=== PATIENT | male | born 1950 | race Caucasian/White ===

== ENCOUNTER 2017-06-05 07:47 | Inpatient (IN) | payer OTHER, MEDICARE ==
[2017-06-05] VITALS (9 sets, daily range): BP systolic 132–140; BP diastolic 70–81; PULSE 55–74; RESP 16–18; TEMP 97.9–98.6; O2SAT 94–96
[~2017-06-05] VITALS: Ht 180.3 cm; Wt 84.0 kg
[2017-06-05] MEDS: SODIUM CHLOR 0.9% 1000 ML INJ 1,000 ML IV SCH (08:15)
[2017-06-05] MEDS ORDERED: MORP1TAB24 PO (08:37)
[2017-06-05] MEDS ORDERED: BAYE325T (08:37)
[2017-06-05] MEDS ORDERED: NITR1SUB3 SL (08:37)
[2017-06-05] MEDS ORDERED: BUPR150T5 PO (08:37)
[2017-06-05] MEDS ORDERED: ISOS30TA3 PO (08:37)
[2017-06-05] MEDS ORDERED: ATOR1TAB18 PO (08:37)
[2017-06-05 08:46] LABS: AUTOMATED NEUTROPHIL # 5.2 TH/MM3 (1.8-7.7); BASOPHIL % 0.5 % (0.0-2.0); EOSINOPHIL # 0.4 TH/MM3 (0-0.4); EOSINOPHIL % 4.8 % (0.0-4.0); HEMATOCRIT 40.4 % (39.0-51.0); HEMO FLAGS DIFF FINAL; LYMPH % 25.8 % (9.0-44.0); LYMPHOCYTE # 2.3 TH/MM3 (1.0-4.8); MEAN CELL VOLUME 93.9 FL (80.0-100.0); MEAN CORPUSCULAR HEMOGLOBIN 32.4 PG (27.0-34.0); MEAN CORPUSCULAR HGB CONC 34.5 % (32.0-36.0); MONO % 9.6 % (0.0-8.0); NEUT % 59.3 % (16.0-70.0); PLATELET COUNT 192 TH/MM3 (150-450); RED CELL DISTRIBUTION WIDTH 13.6 % (11.6-17.2); WHITE BLOOD COUNT 8.8 TH/MM3 (4.0-11.0)
[2017-06-05 08:57] LABS: APTT (PATIENT) 28.9 SEC (24.3-30.1); INTERNATIONAL NORMALIZED RATIO 0.9 RATIO; PROTHROMBIN TIME - PATIENT 10.1 SEC (9.8-11.6)
[2017-06-05 08:59] LABS: BICARBONATE 26.9 MEQ/L (21.0-32.0); POTASSIUM 3.7 MEQ/L (3.5-5.1)
[2017-06-05] MEDS ORDERED: MIDAZOLAM HCL 2 MG/2 ML VIAL ONE (09:50)
[2017-06-05] MEDS ORDERED: VERAPAMIL HCL 5 MG/2 ML VIAL ONE (09:50)
[2017-06-05] MEDS ORDERED: NITROGLYCERIN INJ 5 ML ONE (09:51)
[2017-06-05] MEDS ORDERED: HEPARIN SODIUM - IV 10,000 UNITS/10 ML VIAL ONE (09:51)
[2017-06-05] MEDS ORDERED: HEPARIN-NS/PF INJ 500 ML ONE (09:51)
--- NOTE | 2017-06-05 10:56 | CATHPROC ---
[employer] HIS Report Study Information Study Number Admission Scheduled Start Study Start [id number] Jun 05 2017 7:47AM 06/05/2017 Jun 05 2017 9:45AM [facility] Cardiac Catheterization Admit Source Facility Department Other [facility] - Automatic Gluing Machine Operator Physician and Clinical Staff Initial Alex Bowens Sales And Marketing Analystmary Chandra RN, Laurent Sales And Marketing AnalystNayeli Reynoso BSRN Recorder Taya Graves RCIS TECH2 Scrub Sav Bautista RCIS(BS) Procedures Performed Procedure Location (Site) Vessel Name Coronary Angiograms LCA Left Coronary Coronary Angiograms RCA Right Coronary Equipment Time Home Comfort Advisor Description Size Mfg Part Number Used/Scraped TRANSDUCER, TRUWAVE [id number] 10:13 [employer] SANTIAGO * Used W/STOCKCOCK *[id number] [id number] *[id number] [id number] *[id number] 10:13 [employer] PACK, CCL CUSTOM * Used *[id number] 10:13 [employer] SUPPORT, ARTERIAL ADULT [id number] Used BAND, RADIAL COMPRESSION TR [id number] 10:37 [employer] 29CM Used LARGE 29 *[id number] 10:13 [employer] WIRE, EXCHANGE 260CM 3MMJ 260CM Used *[id number] 10:13 NAMIC MANIFOLD, 4 PORT * Used *[id number] 10:13 [employer] OMNIPAQUE, 350 MG, 150ML 150ML [id number] Used [id number] 10:13 [employer] BLANKET,WARM AIR CCL * Used *[id number] SHEATH, FR6 TRANSRADIAL RM*[id number] 10:13 [employer] FR 6 Used SLENDER 10CM *[id number] History: Current Medications Medication Dosage/Unit Route Frequency Last Date/Time Taken Statins (any) ASA Imdur NTG SL History: Allergies Allergy Reaction No Known Allergies History: Risk Factors Family History of Hypertension Dyslipidemia Previous NC Previous Heart Failure Premature CAD Yes Yes No Yes No Prior Valve Prior PCI Prior CABG Surgery No No No Cerebrovascular Peripheral Artery Chronic Lung On Dialysis Diabetes Disease Disease Disease No No No No No History: Symptoms/Diagnosis Selection Items Chest pain History: Stress Tests Stress or Imaging Studies Performed No History: Other Current Smoker Method Packs a Day Years Used Pack Years Yes Cigarettes 2 45 90 Labs Hgb (g/dl) Hct (%) WBC (l/cumm) Platelets (thousands) 11.60-17.00 35.00-51.00 4.00-11.00 150.00-450.00 14.0 40.4 8.8 192 Glucose (mg/dl) BUN (mg/dl) Creatinine (mg/dl) BUN:Creatinine (1:x) 74.00-106.00 7.00-18.00 0.50-1.30 10.00-20.00 91 15 0.5 30 Na (meq/l) K (meq/l) Cl (meq/l) CO2 (mmol/L) Ca (mg/dl) 136.00-145.00 3.50-5.10 98.00-107.00 21.00-32.00 8.50-10.10 139 3.7 105 26.9 8.7 PT (sec) PTT (sec) INR (PTT:PT) 9.80-11.60 24.30-30.10 0.90-1.10 10.1 28.9 0.9 CPK-MB (ng/ML) 0.50-3.60 Not Drawn Medication Medication Total Dose (Bolus/Oral) Medication Total Dosage/Unit 1% XYLOCAINE 20 mL FENTANYL 50 mcg RADIAL COCKTAIL 5 mL (Bolus) VERSED 1 mg Medications (Bolus/Oral) Medication Time Given Dosage/Unit Administered By Reason FENTANYL 06/05/2017 10:18:14 AM 50 mcg Laurent Chandra RN 50 mcg FENTANYL given in lab by Laurent Chandra RN in Left Antecubital via Peripheral IV. Ordered by Alex Avendano. 1% XYLOCAINE 06/05/2017 10:18:14 AM 20 mL Alex Smyth 20 mL 1% XYLOCAINE given in lab by Alex Smyth in Right Radial via Subcutaneous. VERSED 06/05/2017 10:19:21 AM 1 mg Laurent Chandra RN 1 mg VERSED given in lab by Laurent Chandra RN in Left Antecubital via Peripheral IV. Ordered by Alex Lea. Ntg 200mcg Verapamil 2.5mg Heparin RADIAL COCKTAIL 06/05/2017 10:19:58 AM 5 mL (Bolus) Alex Smyth 3000U 5 mL (Bolus) RADIAL COCKTAIL given in lab by Alex Smyth in Right Radial via Radial. Using [Maisha ution Name]. Ordered by Alex Smyth. Reason: Ntg 200mcg Verapamil 2.5mg Heparin 3500U. Medication (Drip) Medication Time Given Dosage/Unit Concentration/Unit Diluent (ml) Solution IV Solutions 06/05/2017 9:54:12 AM 0 mL (IV) 500 NaCl .9 Patient arrived on IV Solutions in Left Antecubital via Peripheral IV. Pump/Drip Flow = 20 ml/hr usin g NaCl .9. Initial Case Assessment Cardiovascular HR Rhythm NIBP Chest Pain 61 sr 132/72 0 Circulatory - Right Pulses Dorsalis Pedis Femoral Radial 2 2 2 Scale (0,1,2,3,4,d) Scale (0,1,2,3,4,d) Neurological State Oriented to time-place- Alert Moves all extremities person Respiration - General Respiration Rate SpO2 (%) (B/min) 20 96 Final Case Assessment Cardiovascular HR Rhythm NIBP Chest Pain 61 sr 123/71 0 Circulatory - Right Pulses Dorsalis Pedis Femoral Radial 2 2 2 Scale (0,1,2,3,4,d) Circulatory - Left Pulses Dorsalis Pedis Femoral Radial 2 2 Scale (0,1,2,3,4,d) Neurological State Oriented to time-place- Alert Moves all extremities person Respiration - General Respiration Rate SpO2 (%) (B/min) 13 96 Chronological Log Time Study Chronological Log 9:49:48 Patient arrived via Bed. 9:49:49 Patient Name, D.O.B, / Armband Verified By R.N. 9:49:50 Consent signed by the physician and the patient and verified by the Automatic Gluing Machine Operator staff. 9:49:51 Pre-op and post- op instructions given; patient acknowledges understanding of instructions. 9:49:53 Verbal Stimulation=2 Physical Stimulation=2 Airway=2 Respiration=2 TOTAL=8. (0=absent, 1=whitlock ited, 2=present) Vitals capture started with the following parameters, Patient=Adult, Interval=5 min, Initial Pr eajfjt=818 mmHg, 9:51:10 Deflation Rate=5 mmHg, Cuff placed on Right Arm 9:51:45 OMNT=704/72 mmhg 9:53:25 Allens test performed on the right radial and ulnar artery. 9:53:27 Patient has been NPO for More than 6Hrs. 9:53:28 Skin Breakdown-none 9:53:29 Lin Prominences Protected 9:53:32 A # 20 IV was noted in the Antecubital (left). Grade = patent 9:54:12 Patient arrived on IV Solutions in Left Antecubital via Peripheral IV. Pump/Drip Flow = 20 m l/hr using NaCl .9. 9:54:55 History and physical on the chart or being dictated. Assessment: Initial Case, HR=61 BPM, Rhythm=sr, NNWU=149/72 mmhg, Chest Pain=0 Right Pulses: Eric Ped=2, Femoral=2, Radial=2 9:55:03 Neurological: State=Alert, Ox3, ALONZO Respiration: Resp=20 B/min, SpO2=96 % 9:56:48 HR=59 bpm, SRDL=077/70 mmhg, SpO2=97.0 %, Resp=10 B/min, Pain=0, Pete=2 10:01:40 Reference ECG taken 10:01:45 HR=68 bpm, CLXN=220/71 mmhg, SpO2=96 %, Resp=10 B/min 10:02:44 Bilateral groins and right wrist prepped with 2% chlorhexidine, and draped after a 3 min. w aiting time. 10:06:46 HR=60 bpm, ABMY=978/74 mmhg, SpO2=98.0 %, Resp=15 B/min 10:10:57 MD arrived. 10:11:01 Pressure channel 1 zeroed. 10:11:47 HR=59 bpm, FOIZ=830/73 mmhg, SpO2=97.0 %, Resp=12 B/min 10:16:46 HR=56 bpm, GPWP=710/72 mmhg, SpO2=98.0 %, Resp=7 B/min Time Out. Correct patient, correct procedure, correct physician, power injector not loaded with contrast with surgical 10:17:33 team present. Time Out Concurred by MD and individual staff in procedure 10:18:08 Case Start 10:18:14 50 mcg FENTANYL given in lab by Laurent Chandra RN in Left Antecubital via Peripheral IV. Orde red by Alex Smyth. 10:18:14 20 mL 1% XYLOCAINE given in lab by Alex Smyth in Right Radial via Subcutaneous. 10:19:21 1 mg VERSED given in lab by Laurent Chandra RN in Left Antecubital via Peripheral IV. Ordered by Alex Smyth. 10:19:41 Access site was Radial Artery. A SHEATH, FR6 TRANSRADIAL SLENDER 10CM FR 6 was advanced into the Fem Art (right) using the Per cutaneous 10:19:50 technique. 5 mL (Bolus) RADIAL COCKTAIL given in lab by Alex Smyth in Right Radial via Radial. Evelyne lee [Solution Name]. 10:19:58 Ordered by Alex Smyth. Reason: Ntg 200mcg Verapamil 2.5mg Heparin 3500U. A JR 4.0 INFINITI CATHETER FR 5 was advanced over a wire. OMNIPAQUE, 350 MG, 150ML 150ML was us ed for 10:20:33 injections. 10:21:49 HR=59 bpm, QTZL=012/65 mmhg, SpO2=96.0 %, Resp=17 B/min, Pain=0, Pete=2 Recorded Pressure: LV, HR=65, Condition=Condition 1 10:23:03 (Left Ventricle) LV 110/1/8 Recorded Pressure: LV, Ao, HR=68, Condition=Condition 1 10:23:17 (Left Ventricle) LV 104/1/8, (Aorta) Ao 108/59/79 10:24:46 The RCA was injected and visualized at various angles. OMNIPAQUE, 350 MG, 150ML 150ML used . Recorded Pressure: Ao, HR=61, Condition=Condition 1 10:25:15 (Aorta) Ao 112/64/83 After removing the current catheter a JL 3.5 INFINITI CATHETER FR 5 was advanced over a WIRE, E XCHANGE 260CM 10:26:33 3MMJ 260CM. 10:26:46 HR=64 bpm, MKVZ=463/67 mmhg, SpO2=94 %, Resp=14 B/min 10:29:27 The LCA was injected and visualized at various angles. OMNIPAQUE, 350 MG, 150ML 150ML use d. 10:31:45 HR=63 bpm, UHBB=650/69 mmhg, SpO2=93.0 %, Resp=13 B/min 10:33:55 Catheter was removed over wire. 10:36:47 HR=61 bpm, HZOD=590/71 mmhg, SpO2=95.0 %, Resp=13 B/min Radial Compression Device Used. 9 mLs of air placed in BAND, RADIAL COMPRESSION TR LARGE 29 29 CM. Affected 10:36:59 hand 96 % O2 saturation. 10:37:22 Case End Assessment: Final Case, HR=61 BPM, Rhythm=sr, SPIL=512/71 mmhg, Chest Pain=0 Right Pulses: Eric Ped=2, Femoral=2, Radial=2 10:40:47 Left Pulses: Eric Ped=2, Femoral=2 Neurological: State=Alert, Ox3, ALONZO Respiration: Resp=13 B/min, SpO2=96 % 10:41:23 Vitals capture stopped. 10:43:37 No case complications noted. 10:43:40 Cine recording checked. 10:43:42 Bedside Report will be given. 10:43:47 Patient moved to bed 10:43:59 Patient transported to DOCU End Study - Contrast Media Used In Study Contrast Total Opened (mL) Total Used (mL) Total Wasted (mL) Omnipaque 45 45 0 End Study - Maximum Contrast Load Max Contrast Load (mL) 859.1 End Study - Radiation Exposure Fluoro Time (minutes) 3.7 End Study - Sheaths Sheaths Pulled By Sheath Hold Time (min) Alex Smyth End Study - Patient Disposition Complications Transferred To No Telemetry Bed
[2017-06-05] MEDS ORDERED: oxyCODONE/ACETAMINOPHEN 5 MG/325 MG TAB PO PRN ×2 (11:00)
[2017-06-05] MEDS ORDERED: ONDANSETRON HCL 4 MG/2 ML VIAL IVP PRN (11:00)
[2017-06-05] MEDS ORDERED: SODIUM CHLORIDE 0.9% FLUSH 10 ML FLUSH IV FLUSH PRN (11:30)
[2017-06-05] MEDS ORDERED: INSULIN REGULAR (IV INFUSION) 100 UNITS in SODIUM CHLORIDE 0.9% INJ 100 ML IV SCH (11:30)
[2017-06-05] MEDS ORDERED: ceFAZolin 2 GM PREMIX 50 ML IV SCH (11:30)
[2017-06-05] MEDS ORDERED: CHLORHEXIDINE GLUCONATE 4% SOLN 120 ML BTL TOPICAL SCH (11:30)
[2017-06-05] MEDS ORDERED: PAPAVERINE INJ 60 MG, NITROGLYCERIN INJ 100 MCG, DILTIAZEM INJ 100 MG in SODIUM CHLORID... IRRIGATION SCH (11:30)
[2017-06-05] MEDS ORDERED: CEFAZOLIN INJ 500 MG in SODIUM CHLORIDE 0.9% IRR BTL 500 ML IRRIGATION SCH (11:30)
[2017-06-05] MEDS ORDERED: METOPROLOL TARTRATE 25 MG TAB PO SCH (11:30)
[2017-06-05] MEDS ORDERED: PILL SPLITTER OTHER PRN (11:45)
[2017-06-05] MEDS ORDERED: IOHEXOL 350 MG/ML 50 ML BTL (for Cath Lab) OTHER ONE (11:47)
--- NOTE | 2017-06-05 11:55 | EKG ---
Date Performed: 06/05/2017 Time Performed: 08:41:20 PTAGE: 66 years EKG: Sinus bradycardia Left axis deviation rSr'(V1) - probable normal variant Poor R wave progre ssion - probable normal variant Borderline ECG NO PREVIOUS TRACING DOCTOR: Avery Jeronimo Interpretating Date/Time 06/05/2017 11:54:02
--- NOTE | 2017-06-05 12:32 | RADRPT ---
EXAM DATE/TIME: 06/05/2017 11:36 [facility] COMPARISON: No previous studies available for comparison. INDICATIONS : Evaluate for pneumonia, pneumothorax, and communicable disease. Preop for CABG. MEDICAL HISTORY : None. SURGICAL HISTORY : None. ENCOUNTER: Initial ACUITY: 1 day PAIN SCORE: 0/10 LOCATION: Bilateral chest FINDINGS: The heart is at the upper limits of normal in size. There are patchy areas of infiltrate seen in the lung bases. A basilar pneumonia is not excluded. There is no pleural effusion. The osseous structures are intact. CONCLUSION: 1. There are patchy areas of infiltrate in the lung bases. An underlying pneumonia is not excluded. Valentin Lucio MD on June 05, 2017 at 12:30 Board Certified Radiologist. This report was verified electronically.
--- NOTE | 2017-06-05 13:26 | RADRPT ---
EXAM DATE/TIME: 06/05/2017 11:56 [facility] COMPARISON: No previous studies available for comparison. INDICATIONS : Preop cardiac surgery. MEDICAL HISTORY : Myocardial infarction. Coronary artery disease. Chest pain. SURGICAL HISTORY : Cardiac cath. ENCOUNTER: Initial ACUITY: 1 day PAIN SCORE: 0/10 LOCATION: Bilateral neck PEAK SYSTOLIC VELOCITIES (cm/sec): ICA/CCA RATIO: Right: 1.0 Left: 1.3 ICA: Right: 78 Left: 100 CCA: Right: 136 Left: 76 ECA: Right: 95 Left: 88 VERTEBRAL: Right: 39 antegrade Left: 50 antegrade Elevated flow velocities and ICA/CCA ratios have been found to correlate with increased degrees of vessel stenosis, calculated as percentage of diameter relative to a normal segment of distal ICA/CCA FINDINGS: RIGHT CAROTID: No significant stenosis is visualized. The waveforms are within normal limits. LEFT CAROTID: No significant stenosis is visualized. The waveforms are within normal limits. VERTEBRAL ARTERIES: Antegrade flow is seen in both vertebral arteries. MISCELLANEOUS: None. CONCLUSION: 1. No hemodynamically significant flow-limiting stenosis. 2. Antegrade vertebral artery flow bilaterally. Frantz Rod MD on June 05, 2017 at 13:23 Board Certified Radiologist. This report was verified electronically.
--- NOTE | 2017-06-05 13:28 | RADRPT ---
EXAM DATE/TIME: 06/05/2017 12:13 [facility] COMPARISON: No previous studies available for comparison. INDICATIONS : Preop cardiac surgery. MEDICAL HISTORY : Myocardial infarction. Coronary artery disease. Chest pain. SURGICAL HISTORY : Cardiac cath. ENCOUNTER: Initial ACUITY: 1 day PAIN SCORE: 0/10 LOCATION: Bilateral leg. TECHNIQUE: Venous ultrasound of the left and right leg was performed from the inguinal ligament to the proximal calf. Real-time, color Doppler and spectral tracing, compression and augmentation techniques were us ed. FINDINGS: RIGHT LEG: There is normal compressibility of the deep venous system from the inguinal region to the proximal ca lf. No echogenic clot is seen in the lumen of the common femoral, femoral, popliteal, and posterior tibial veins. There is a normal response of the venous system to proximal and distal augmentation an d respiration. LEFT LEG: There is normal compressibility of the deep venous system from the inguinal region to the proximal ca lf. No echogenic clot is seen in the lumen of the common femoral, femoral, popliteal, and posterior tibial veins. There is a normal response of the venous system to proximal and distal augmentation an d respiration. CONCLUSION: 1. No sonographic evidence for lower extremity DVT. Frantz Rod MD on June 05, 2017 at 13:25 Board Certified Radiologist. This report was verified electronically.
--- NOTE | 2017-06-05 13:29 | RADRPT ---
EXAM DATE/TIME: 06/05/2017 12:23 [facility] COMPARISON: No previous studies available for comparison. INDICATIONS : Preop cardiac surgery. MEDICAL HISTORY : Myocardial infarction. Coronary artery disease. Chest pain. SURGICAL HISTORY : Cardiac cath. ENCOUNTER: Initial ACUITY: 1 day PAIN SCORE: 0/10 LOCATION: Bilateral leg. GREATER SAPHENOUS VEIN THIGH: PROXIMAL: Right 5 mm Left 5 mm MID: Right 3 mm Left 3 mm DISTAL: Right 2 mm Left 3 mm CALF: PROXIMAL: Right 2 mm Left 1 mm MID: Right 2 mm Left Non-visualized DISTAL: Right 2 mm Left Non-visualized FINDINGS: The venous system of the lower extremities are patent by color Doppler imaging. Measurements of the leg veins (in mm) are listed above. CONCLUSION: 1. Venous mapping examination, as above. Frantz Rod MD on June 05, 2017 at 13:26 Board Certified Radiologist. This report was verified electronically.
--- NOTE | 2017-06-05 15:48 | PD.CAR.PN ---
CVT Progress Note Subjective/Hospital Course: pt seen and evaluated , full consulted dictated. Pt with multi vessel disease for CABG x 5 in am STS data discussed with pt RISK SCORES About the STS Risk Calculator Procedure: CAB Only Risk of Mortality: 0.803% Morbidity or Mortality: 8.284% Long Length of Stay: 3.314% Short Length of Stay: 57.112% Permanent Stroke: 0.545% Prolonged Ventilation: 6.377% DSW Infection: 0.418% Renal Failure: 0.581% Reoperation: 4.111% Objective: Vital Signs Date Time Temp Pulse Resp B/P Pulse Ox O2 Delivery O2 Flow Rate FiO2 06/05/17 10:52 97 Room Air 06/05/17 08:38 98.2 74 18 140/75 96 Labs: Laboratory Tests Test 06/05/17 06/05/17 06/05/17 08:28 11:45 11:50 White Blood Count 8.8 TH/MM3 (4.0-11.0) Red Blood Count 4.30 MIL/MM3 (4.50-5.90) Hemoglobin 14.0 GM/DL (13.0-17.0) Hematocrit 40.4 % (39.0-51.0) Mean Corpuscular Volume 93.9 FL (80.0-100.0) Mean Corpuscular Hemoglobin 32.4 PG (27.0-34.0) Mean Corpuscular Hemoglobin 34.5 % Concent (32.0-36.0) Red Cell Distribution Width 13.6 % (11.6-17.2) Platelet Count 192 TH/MM3 (150-450) Mean Platelet Volume 8.1 FL (7.0-11.0) Neutrophils (%) (Auto) 59.3 % (16.0-70.0) Lymphocytes (%) (Auto) 25.8 % (9.0-44.0) Monocytes (%) (Auto) 9.6 % (0.0-8.0) Eosinophils (%) (Auto) 4.8 % (0.0-4.0) Basophils (%) (Auto) 0.5 % (0.0-2.0) Neutrophils # (Auto) 5.2 TH/MM3 (1.8-7.7) Lymphocytes # (Auto) 2.3 TH/MM3 (1.0-4.8) Monocytes # (Auto) 0.8 TH/MM3 (0-0.9) Eosinophils # (Auto) 0.4 TH/MM3 (0-0.4) Basophils # (Auto) 0.0 TH/MM3 (0-0.2) CBC Comment DIFF FINAL Differential Comment Prothrombin Time 10.1 SEC (9.8-11.6) Prothromb Time International 0.9 RATIO Ratio Activated Partial 28.9 SEC Thromboplast Time (24.3-30.1) Sodium Level 139 MEQ/L (136-145) Potassium Level 3.7 MEQ/L (3.5-5.1) Chloride Level 105 MEQ/L (98-107) Carbon Dioxide Level 26.9 MEQ/L (21.0-32.0) Anion Gap 7 MEQ/L (5-15) Blood Urea Nitrogen 15 MG/DL (7-18) Creatinine 0.54 MG/DL (0.60-1.30) Estimat Glomerular Filtration 152 ML/MIN Rate (>89) Random Glucose 91 MG/DL (74-106) Calcium Level 8.7 MG/DL (8.5-10.1) Blood Type O POSITIVE O POSITIVE Antibody Screen NEGATIVE Crossmatch Leukocyte-Reduced Red Blood Cells Blood Bank Comment Result Diagram: 06/05/1728 06/05/1728 Sunshine Altamirano Jun 05, 2017 15:48
[2017-06-05] MEDS ORDERED: NITROGLYCERIN 0.4 MG SL 25 TABS/BTL SL PRN (17:15)
[2017-06-05 17:31] LABS: BLOOD, URINE NEG (NEG); COMMENT (UR) CULT NOT INDICATED; CULTURE IF INDICATED CULT NOT INDICATED; GLUCOSE,URINE NEG (NEG); KETONE, URINE NEG (NEG); NITRITE,URINE NEG (NEG); URINE COLOR YELLOW (YELLW/STRAW)
[2017-06-05] MEDS: buPROPion HCL 150 MG SUSTAINED RELEASE TAB PO SCH (21:50)
[2017-06-05] MEDS: ATORVASTATIN 80 MG TAB PO SCH (21:50)
[2017-06-05] MEDS: SODIUM CHLORIDE 0.9% FLUSH 10 ML FLUSH IV FLUSH SCH (21:51)
--- NOTE | 2017-06-05 22:12 | MH ---
cc: ALEX CORREA DO DATE OF ADMISSION 06/05/2017 REASON FOR ADMISSION Unstable angina. HISTORY OF PRESENT ILLNESS Bryson Quintana is a pleasant 66-year-old male who originally presented to the outpatient office to see my partner Dr. Holt due to chest pain. His chest pain is in the center of his chest, lasting minutes, especially with exertion and relieved by rest. He was recommended cardiac catheterization. Since being seen in the office less than a week ago, he has gone through 10-14 nitroglycerins. He underwent cardiac catheterization was found to have multivessel coronary artery disease. Because of the significance of his chest pain as well as multivessel disease it was felt that he should be admitted to the hospital for consideration of coronary artery bypass grafting. Currently he is post cardiac catheterization and is hemodynamically stable without chest pain. PAST MEDICAL HISTORY 1. Coronary artery disease. 2. Chronic pain syndrome. 3. Hyperlipidemia. 4. Neuropathy. 5. Tobacco abuse. PAST SURGICAL HISTORY 1. Cardiac catheterization (June 05, 2017) with left main 10%. Mid-LAD 80%. First diagonal with diffuse 70% disease. Left circumflex with a complex 99% long, tortuous lesion which crosses the bifurcation of the first major obtuse marginal. RCA 90% mid disease. 2. Lumbosacral spine surgery. ALLERGIES NO KNOWN DRUG ALLERGIES. MEDICATIONS 1. Aspirin 325 mg daily. 2. Lipitor 80 mg daily. 3. Bupropion 150 mg every 12 hours. 4. Imdur 30 mg daily. 5. Nitro sublingual as needed. 6. Morphine ER 15 mg every 4 hours as needed for pain. FAMILY HISTORY Denies premature coronary artery disease or sudden cardiac within the family. SOCIAL HISTORY The patient drinks alcohol rarely. He smokes two packs a day in the past and is down to half a pack a day recently. REVIEW OF SYSTEMS 14-systems were reviewed including osteopathic. Pertinent positives and negatives as above otherwise negative. PHYSICAL EXAMINATION VITAL SIGNS: Temperature 98.2, heart rate 74, blood pressure 140/75, respirations 18, pulse ox 96% on room air. GENERAL: In general the patient appears well in no acute distress, alert, awake and oriented x3. HEENT: Extraocular muscles intact. Mucous membranes moist. NECK: Supple. No JVD at 45 degrees. No carotid bruits heard bilaterally. Carotid upstroke is brisk in nature. CARDIOVASCULAR: Heart is regular rate and rhythm. Positive first and second heart sounds with no noted murmurs, gallops or rubs. LUNGS: Have decreased breath sounds at bilateral bases but no overt wheezes, rales or rhonchi. ABDOMEN: Soft, nontender, nondistended. No organomegaly noted. EXTREMITIES: Show no clubbing, cyanosis or edema. Femoral and distal pulses intact bilaterally. NEUROLOGIC: No focal deficits. SKIN: Warm, dry and intact. OSTEOPATHIC: No kyphoscoliosis, lordosis or paraspinal tender points. LABORATORY FINDINGS Hemoglobin 14.0, hematocrit 40.4, platelets 192. INR 0.9. Potassium 3.7, BUN 15, creatinine 0.54. Electrocardiogram (June 05, 2017 at 0841) sinus bradycardia, left axis deviation, poor R-wave progression most likely normal variant. ECHOCARDIOGRAM (May 27, 2017 from the office) ejection fraction 40-45%, mild concentric LVH. Trace to mild mitral regurgitation. Trace tricuspid regurgitation. IMPRESSION 1. Unstable angina on multiple antianginals. 2. Multivessel coronary artery disease as above. 3. Ejection fraction of 40-45% by echocardiogram as above. 4. Tobacco abuse. RECOMMENDATIONS 1. Because Bryson is having such significant chest pain requiring multiple nitroglycerins throughout a day, I feel that he should be admitted in consideration of coronary artery bypass grafting. 2. Case was discussed with Dr. Carey and he agrees and will plan for coronary artery bypass grafting tomorrow depending on testing. 3. For now he is not having chest pain and he will be supplied with nitro sublingual as needed. If overnight anything changes he may need to be placed on a heparin or a nitroglycerin drip. 4. I spoke to him for greater than 3 minutes about tobacco cessation which he states that he will attempt to quit now that he is going to be in the hospital a few days after his bypass grafting. Thank you for allowing me to see Bryson Quintana. If there are any questions please do not hesitate to call. Alex Correa DO VGP/KK /9:25 PM /9:49 PM
[2017-06-06] VITALS (18 sets, daily range): BP systolic 94–156; BP diastolic 27–84; PULSE 52–75; RESP 9–24; TEMP 96.6–100.8; O2SAT 91–98
[2017-06-06] MEDS ORDERED: HEPARIN SODIUM - SQ 10,000 UNITS/ML VIAL SQ ONE (05:00)
[2017-06-06] MEDS ORDERED: PROPOFOL 1000 MG/100 ML INJ 100 ML IV ONE (05:00)
[2017-06-06] MEDS ORDERED: NITROGLYCERIN-DEXTROSE INJ 250 ML IV ONE (05:00)
[2017-06-06] MEDS ORDERED: MAGNESIUM SULFATE 1000 MG/2 ML VIAL (PED) IV ONE (05:00)
[2017-06-06] MEDS ORDERED: PROTAMINE SULFATE 250 MG/25 ML VIAL IV ONE (05:00)
[2017-06-06] MEDS ORDERED: GLYCOPYRROLATE 0.2 MG/ML VIAL IV ONE (05:00)
--- NOTE | 2017-06-06 05:29 | MA ---
cc: ALEX CORREA DO DATE June 05, 2017 PROCEDURE Left heart catheterization, coronary angiogram, moderate sedation 20 minutes. PREPROCEDURE DIAGNOSIS Unstable angina on multiple antianginals. POSTPROCEDURE DIAGNOSIS Multivessel coronary artery disease. Unstable anginal. Consideration of coronary artery bypass grafting. MEDICATIONS 1. Fentanyl 50 mcg. 2. Versed 1 mg. 3. Verapamil 2.5 mg. 4. Heparin 3500 units. 5. Nitro 200 mcg. CONTRAST 45 cc. FLUOROSCOPY 3.7 minutes. MODERATE SEDATION 20 minutes. ESTIMATED BLOOD LOSS 10 cc. PROCEDURAL SUMMARY Bryson Quintana is a pleasant 66-year-old male who originally presented in the outpatient office with typical symptoms for unstable angina. Because of this it was felt that foregoing a stress test and undergoing a cardiac catheterization was his best option as, if his stress test was negative, he would still be recommended cardiac catheterization due to his significant symptoms. Risks, benefits and alternatives were explained to him and he consented as such. He was brought to the lab and prepped in the usual sterile fashion. Right radial artery was accessed using a modified Seldinger technique and placement of a 5/6 Italian Slender Sheath. This was easily aspirated and flushed. A JR-4 was advanced over a J-wire to the ascending aorta and across the aortic valve into the left ventricle for measurement of pressures. This was pulled back showing no significant gradient of aortic stenosis. JR-4 was used for selective angiography of the right coronary system. This was exchanged out for a JL-3.5 which was used for angiogram of the left coronary system. JL-3.5 was removed over a J-wire. A radial band was placed over the arteriotomy site for hemostasis. The patient left the garden labourer cardiovascularly stable. FINDINGS The left main is a normal-size vessel with mild luminal irregularities. It bifurcates into an LAD and circumflex. The LAD is a normal-sized vessel with mild luminal irregularities through the proximal portion. After the first major diagonal in the midportion of the LAD there is an 80% lesion with diffuse 40-50% distally. The first diagonal appears to have 70% disease in the proximal portion. At the lesion in the LAD there is a septal ship design teacher that has a 90% stenosis in the ostial portion. The LAD and septal perforators seemed to help provide collaterals to the distal circumflex. The left circumflex is a moderate-sized vessel in the proximal portion and before the takeoff of the first diagonal there is a 99% lesion which is overall complex because it is long and tortuous and involves the takeoff of the first two obtuse marginals. Overall the circumflex provides four to five major obtuse marginals. The RCA is a moderate-sized vessel with a 90% lesion in the proximal portion. The PDA has a 50% ostial lesion. LVEDP 8. IMPRESSIONS 1. Unstable angina on multiple antianginals 2. Multivessel coronary artery disease as above for consideration of coronary artery bypass grafting. RECOMMENDATIONS 1. Bryson Quintana presented with unstable angina and appears to have multivessel disease. Because of this I have recommended coronary artery bypass grafting. 2. Bryson has been on multiple antianginals and continues to have pain daily requiring multiple nitroglycerin throughout the day. Because of this I feel that he should stay in the hospital and have urgent coronary artery bypass grafting. 3. The case was discussed with Dr. Carey who we will consider coronary artery bypass grafting over the next few days. 4. Further recommendations will be made based on cardiothoracic surgery consultation. Thank you for allowing me to see Bryson Quintana. If there are any questions, please do not hesitate to call. Alex Correa DO VGP/SSB /9:14 PM /5:15 AM
[2017-06-06 06:24] LABS: AUTOMATED NEUTROPHIL # 4.9 TH/MM3 (1.8-7.7); BASOPHIL % 0.5 % (0.0-2.0); EOSINOPHIL # 0.5 TH/MM3 (0-0.4); EOSINOPHIL % 5.1 % (0.0-4.0); HEMATOCRIT 42.5 % (39.0-51.0); HEMO FLAGS DIFF FINAL; LYMPH % 32.4 % (9.0-44.0); MEAN CELL VOLUME 94.7 FL (80.0-100.0); MEAN CORPUSCULAR HGB CONC 33.8 % (32.0-36.0); MONO % 8.8 % (0.0-8.0); NEUT % 53.2 % (16.0-70.0); PLATELET COUNT 214 TH/MM3 (150-450); RED BLOOD COUNT 4.49 MIL/MM3 (4.50-5.90); RED CELL DISTRIBUTION WIDTH 13.6 % (11.6-17.2); WHITE BLOOD COUNT 9.1 TH/MM3 (4.0-11.0)
[2017-06-06] MEDS ORDERED: ceFAZolin 2 GM PREMIX 50 ML ONE (06:33)
[2017-06-06] MEDS ORDERED: VANCOMYCIN HCL 1000 MG VIAL ONE (06:33)
[2017-06-06] MEDS ORDERED: HEPARIN SODIUM - SQ 10,000 UNITS/ML VIAL ONE (06:34)
[2017-06-06 06:54] LABS: BICARBONATE 26.1 MEQ/L (21.0-32.0); POTASSIUM 3.7 MEQ/L (3.5-5.1)
[2017-06-06] MEDS ORDERED: ISOSORBIDE MONONITRATE 30 MG TAB PO SCH (07:00)
[2017-06-06] MEDS ORDERED: CHLORHEXIDINE GLUCONATE 2 % 1 PACK (2 CLOTHS) TOPICAL ONE (07:20)
[2017-06-06] MEDS ORDERED: POTASSIUM CHLOR 40 MEQ PREMIX 100 ML ONE ×2 (07:58→11:54)
--- NOTE | 2017-06-06 08:30 | MB ---
cc: YANI BIRD MD DATE OF CONSULTATION 06/05/17 DATE OF 1950 HISTORY OF PRESENT ILLNESS This is a 66-year-old patient of Dr. Francis Bergeron, Dr. Holt and Dr. Smyth who has been complaining of some chest discomfort for the last month, he thought it was indigestion and it gradually worse and the pain started with or without exertion and has been taking nitro on a daily basis for the last week, two times a day usually in the a.m. and the p.m. He underwent coronary catheterization which showed multivessel disease. Left main 10%, proximal LAD 30, mid distal LAD 70, diagonal 70%. The circ 99%. The OM 80%. The RCA 90%. EF of 45%. We were consulted to evaluate for coronary artery bypass grafting. Since the patient was having unstable angina and been taking the nitroglycerin more frequently Dr. Smyth requested the patient stay which Dr. Bird agreed and the patient would undergo probable surgery in the a.m. PAST MEDICAL HISTORY The patient's past medical history includes coronary artery disease, unstable angina. Chronic pain syndrome, he sees a pain management doctor. Neuropathy. The pain is in his lower thoracic and lumbar region. Tobacco use. PAST SURGICAL HISTORY Surgeries include lumbar spine surgery 2016. ALLERGIES No known allergies. MEDICATIONS Home meds include: 1. Atorvastatin 80 p.o. daily. 2. Radha aspirin. 3. Wellbutrin 150 q. 12 he takes to help him with smoking cessation. 4. Imdur 30 p.o. daily. 5. Morphine 15 milligrams two tab. He takes 30 milligrams every 4 hours as needed. 6. Nitro p.r.n. for pain. FAMILY HISTORY Mother in her 60s from breast cancer. He is unaware of his biological father's history. SOCIAL HISTORY The patient , four children. He has been smoking since the early 20s, so approximately 47 years, two packs were the highest amount. He is down to a half a pack every couple days. He does wear dentures and he is a retired pipe assembly worker in construction. He basically does work around the house but has no regular other physical activity. REVIEW OF SYSTEMS GENERAL: No night sweats, fever, heat and cold intolerance. SKIN: No psoriasis, itching or hives. HEENT: No blurred vision, hearing loss. RESPIRATORY: Some shortness of breath. CARDIOVASCULAR: As above in the HPI. GASTROINTESTINAL: No diarrhea, vomiting. GENITOURINARY: No burning frequency, urgency. HEAT TREATING FURNACE TENDER: No history of TIA, CVA, seizure disorder. ENDOCRINOLOGY: No history of diabetes and/or hypothyroidism. PHYSICAL EXAMINATION VITAL SIGNS: Blood pressure 140/70, heart rate 74, temperature max 98.2. GENERAL: Patient is awake, alert in no acute distress. HEENT: Head is normocephalic, atraumatic. Pupils equal and reactive. Oral mucosa pink, moist. NECK: Supple. No JVD. HEART: Heart sounds S1-S2, regular rate and rhythm. No rubs, murmurs, gallops. LUNGS: Clear to auscultation. No wheezes, rales or rhonchi. ABDOMEN: Soft, nontender. No masses or organomegaly. EXTREMITIES: No cyanosis, clubbing or edema. LABORATORY DATA Lab work shows hemoglobin 14, hematocrit of 40, white cell count 8.8, platelet count 192, sodium 139, potassium 3.7, BUN of 15, creatinine 0.54, INR 0.9. IMPRESSION A 66-year-old male with multivessel disease. Cardiac films have been reviewed by Dr. Yani Bird. Planning will be for coronary artery bypass grafting x5 in the a.m. Further workup includes carotid ultrasound. Type and cross. Leg vein mapping. The patient is agreeable and will proceed. STS data will be discussed with the patient and documented in the electronic record. Dictated by ALBERTO Corley Yani PURDY/MELISSA /3:49 PM /8:25 AM
[2017-06-06 10:50] LABS: HEMOGLOBIN A1a 1.1 %; HEMOGLOBIN A1b 1.8 %; HEMOGLOBIN Ao 84.3 %; HEMOGLOBIN P3 4.2 %
[2017-06-06] MEDS ORDERED: LACTATED RINGER'S 1000 ML INJ 500 ML IV PRN (12:18)
[2017-06-06] MEDS ORDERED: RESP: RACEPINEPHRINE 2.25% 0.5 ML NEB NEB PRN (12:30)
[2017-06-06] MEDS ORDERED: DEXTROSE 50% IN WATER 50 ML VIAL(D50) IV PUSH PRN (12:30)
[2017-06-06] MEDS ORDERED: ONDANSETRON HCL 4 MG/2 ML VIAL IV PUSH PRN (12:30)
[2017-06-06] MEDS ORDERED: POTASSIUM CHLOR 20 MEQ PREMIX 100 ML IV PRN ×2 (12:30)
[2017-06-06] MEDS ORDERED: POTASSIUM CHLORIDE 20 MEQ CONTROLLED RELEASE TAB PO PRN ×2 (12:30)
[2017-06-06] MEDS ORDERED: hydrALAZINE HCL 20 MG/ML VIAL IV PRN (12:30)
[2017-06-06] MEDS ORDERED: METOPROLOL TARTRATE 5 MG/5 ML VIAL IV PUSH PRN (12:30)
[2017-06-06] MEDS ORDERED: ACETAMINOPHEN 650 MG SUPP RECTAL PRN (12:30)
[2017-06-06] MEDS ORDERED: MAGNESIUM SULFATE INJ 2 GM in SODIUM CHLORIDE 0.9% INJ 100 ML IV PRN ×4 (12:30)
[2017-06-06] MEDS ORDERED: SODIUM CHLORIDE 0.9% FLUSH 10 ML FLUSH IV FLUSH PRN (12:30)
[2017-06-06] MEDS ORDERED: ALBUMIN HUMAN 5% 12.5 GM/250 ML BOTTLE IV PRN (12:30)
[2017-06-06] MEDS ORDERED: Post-op Orders (for Pharmacy) MISC OTHER ONE (12:30)
[2017-06-06] MEDS ORDERED: CALCIUM CHLORIDE 10% 1 GRAM/10 ML VIAL IV PRN (12:30)
[2017-06-06] MEDS ORDERED: RESP: ALBUTEROL 2.5 MG/IPRATROPIUM 0.5 MG NEB (PRN) NEB (12:30)
[2017-06-06] MEDS ORDERED: MEPERIDINE HCL 25 MG/ML VIAL IV PRN (12:30)
[2017-06-06] MEDS ORDERED: MORPHINE SULFATE 4 MG/ML INJ IV PRN (12:30)
[2017-06-06] MEDS ORDERED: oxyCODONE/ACETAMINOPHEN 5 MG/325 MG TAB PO PRN (12:30)
[2017-06-06] MEDS ORDERED: SODIUM CHLORIDE 0.9% FLUSH 10 ML FLUSH IV FLUSH SCH (12:30)
[2017-06-06] MEDS ORDERED: ACETAMINOPHEN 325 MG TAB PO PRN (12:30)
[2017-06-06] MEDS ORDERED: NITROGLYCERIN-DEXTROSE INJ 250 ML IV SCH (13:00)
[2017-06-06] MEDS ORDERED: DOPamine INJ PREMIX 500 ML IV SCH (13:00)
[2017-06-06] MEDS ORDERED: DOBUTamine PREMIX DRIP 250 ML IV SCH (13:00)
[2017-06-06] MEDS ORDERED: MIDAZOLAM HCL 5 MG/5 ML VIAL ONE (13:05)
[2017-06-06] MEDS ORDERED: fentaNYL CITRATE 1000 MCG/20 ML VIAL ONE (13:06)
--- NOTE | 2017-06-06 13:28 | RADRPT ---
EXAM DATE/TIME: 06/06/2017 12:56 [facility] COMPARISON: CHEST SINGLE AP, June 05, 2017, 11:36. INDICATIONS : Post Op CABG. MEDICAL HISTORY : None. SURGICAL HISTORY : CABG. ENCOUNTER: Subsequent ACUITY: 2 days PAIN SCORE: Non-responsive. LOCATION: Bilateral chest FINDINGS: Portable AP view of the chest demonstrates normal size cardiac silhouette in this patient recently po st median sternotomy. Right IJ line tip is near the cavoatrial junction and nasogastric tube is loope d in the stomach. Endotracheal tube tip is located approximately 5 cm from the tariq. There is a med iastinal drain and left chest tube present. No pneumothorax is visualized. Lungs are underinflated wi th bibasilar airspace opacity. CONCLUSION: 1. Expected changes are present following recent median sternotomy and CABG. There is atelectasis hector antoinette consolidation at the lung bases. 2. Left chest tube is present and no pneumothorax is visualized. Alessio Emerson MD on June 06, 2017 at 13:25 Board Certified Radiologist. This report was verified electronically.
--- NOTE | 2017-06-06 13:30 | PD.CARD.PN ---
Subjective Subjective Remarks Patient seen post-CABG Doing well, intubated, no pressors Objective Medications Current Medications Medications (Trade) Dose Ordered Sig/Radha Route Start Time Stop Time Status Last Admin (NS 1000 ml Inj) 1,000 ml @ 30 mls/hr Q24H IV 06/05/17 08:15 06/05/17 08:15 (Lipitor) 80 mg HS PO 06/05/17 21:00 06/05/17 21:50 (Wellbutrin Sr) 150 mg BID PO 06/05/17 21:00 06/05/17 21:50 (NS Flush) 2 ml BID IV FLUSH 06/05/17 21:00 06/05/17 21:51 (NS Flush) 2 ml UNSCH PRN IV FLUSH 06/05/17 11:30 (Pill Splitter) 1 ea UNSCH PRN OTHER 06/05/17 11:45 Nitroglycerin 0.4 mg 0.4 mg Q5M PRN SL 06/05/17 17:15 06/06/17 04:55 Dexmedetomidine HCl 200 mcg/ Sodium Chloride 52 ml @ 0 mls/hr TITRATE IV 06/06/17 14:00 Nitroglycerin/ Dextrose 250 ml @ 0 mls/hr TITRATE IV 06/06/17 13:00 Dobutamine HCl/ Dextrose 250 ml @ 12.75 mls/ hr [id number] IV 06/06/17 13:00 Dopamine HCl/ Dextrose 500 ml @ 0 mls/hr TITRATE IV 06/06/17 13:00 Epinephrine HCl 4 mg/Dextrose 250 ml @ 0 mls/hr TITRATE IV 06/06/17 14:00 Phenylephrine HCl 40 mg/Dextrose 500 ml @ 0 mls/hr TITRATE IV 06/06/17 14:00 (Cleviprex Inj) 50 ml @ 0 mls/hr TITRATE IV 06/06/17 14:00 Albumin Human 12.5 gm 12.5 gm UNSCH PRN IV 06/06/17 12:30 (Lr 1000 ml Inj) 500 ml @ 500 mls/hr Q1H PRN IV 06/06/17 12:18 (Aspirin Chew) 81 mg DAILY PO 06/07/17 09:00 (Plavix) 75 mg DAILY PO 06/07/17 09:00 (Protonix) 40 mg DAILY@06 PO 06/07/17 06:00 (Cordarone) 200 mg Q12HR PO 06/06/17 21:00 (Tylenol) 650 mg Q4H PRN PO 06/06/17 12:30 (Tylenol Supp) 650 mg Q4H PRN RECTAL 06/06/17 12:30 (Ofirmev Inj) 1,000 mg Q6H IV 06/06/17 13:30 06/07/17 07:31 (Morphine Inj) 1 mg Q10M PRN IV 06/06/17 12:30 (Demerol Inj) 12.5 mg Q4H PRN IV 06/06/17 12:30 (Percocet 5-325 Mg) 1 tab Q3H PRN PO 06/06/17 12:30 (Toradol Inj) 15 mg Q6H PRN IV PUSH 06/06/17 12:30 06/08/17 12:29 (fentaNYL INJ) 25 mcg Q1H PRN IV 06/06/17 12:30 UNV (Zofran Inj) 4 mg Q6H PRN IV PUSH 06/06/17 12:30 (Apresoline Inj) 10 mg Q4H PRN IV 06/06/17 12:30 Metoprolol Tartrate 2.5 mg 2.5 mg Q1H PRN IV PUSH 06/06/17 12:30 Potassium Chloride 100 ml @ 50 mls/hr UNSCH PRN IV 06/06/17 12:30 Potassium Chloride 100 ml @ 50 mls/hr UNSCH PRN IV 06/06/17 12:30 (KCl 20 Meq Premix Inj) 100 ml @ 50 mls/hr UNSCH PRN IV 06/06/17 12:30 (KCl) 20 meq UNSCH PRN PO 06/06/17 12:30 06/06/17 12:31 Potassium Chloride 40 meq 40 meq UNSCH PRN PO 06/06/17 12:30 06/06/17 12:31 Magnesium Sulfate 2 gm/Sodium Chloride 104 ml @ 100 mls/hr UNSCH PRN IV 06/06/17 12:30 Magnesium Sulfate 2 gm/Sodium Chloride 104 ml @ 50 mls/hr UNSCH PRN IV 06/06/17 12:30 (Calcium Chloride Inj/NS Inj) 110 ml @ 100 mls/hr UNSCH PRN IV 06/06/17 12:30 Calcium Chloride 0.5 gm 0.5 gm UNSCH PRN IV 06/06/17 12:30 (NovoLIN R (IV INFUSION)/NS Inj) 100 ml @ 0 mls/hr TITRATE IV 06/06/17 14:00 Dextrose 50 ml 50 ml UNSCH PRN IV PUSH 06/06/17 12:30 (Ancef 2 Gm Premix) 50 ml @ 100 mls/hr Q8H IV 06/06/17 16:00 06/08/17 00:29 Vital Signs / I&O Vital Signs Date Time Temp Pulse Resp B/P Pulse Ox O2 Delivery O2 Flow Rate FiO2 06/06/17 12:50 97 50 06/06/17 06:03 59 06/06/17 05:57 57 06/06/17 05:56 98.1 62 16 156/83 96 06/06/17 04:24 53 06/06/17 03:28 52 06/06/17 02:03 53 06/06/17 01:12 52 06/06/17 00:04 52 06/05/17 23:45 98.3 61 18 136/75 96 06/05/17 23:44 56 06/05/17 22:00 56 06/05/17 21:00 66 06/05/17 20:36 98.6 57 16 132/70 06/05/17 20:00 60 06/05/17 19:00 57 06/05/17 15:47 97.9 55 18 135/81 94 06/05/17 15:47 55 I/O 06/05/17 06/05/17 06/05/17 06/06/17 06/06/17 06/06/17 07:00 15:00 23:00 07:00 15:00 23:00 Intake Total 240 ml 240 ml Output Total 250 ml Balance -10 ml 240 ml Intake Oral 240 ml 240 ml Output Urine Total 250 ml # Voids 4 # Bowel Movements 0 Physical Exam GENERAL: Intubated and sedated SKIN: Warm and dry. HEAD: Atraumatic. Normocephalic. EYES: Pupils equal and round. No scleral icterus. No injection or drainage. ENT: No nasal bleeding or discharge. Mucous membranes pink and moist. NECK: Trachea midline. No JVD. CARDIOVASCULAR: Regular rate and rhythm. No murmurs noted. Sternotomy with wound vac RESPIRATORY: No accessory muscle use. Clear to auscultation. Breath sounds equal bilaterally. GASTROINTESTINAL: Abdomen soft, non-tender, nondistended. Hepatic and splenic margins not palpable. MUSCULOSKELETAL: Extremities without clubbing, cyanosis, or edema. No obvious deformities. NEUROLOGICAL: Sedated and intubated Laboratory Laboratory Tests Test 06/05/17 06/05/17 06/06/17 15:14 16:30 04:54 Nasal Screen MRSA (PCR) MRSA NOT DETECTED Urine Color YELLOW Urine Turbidity CLEAR Urine pH 7.0 Urine Specific [place] 1.036 Urine Protein NEG mg/dL Urine Glucose (UA) NEG mg/dL Urine Ketones NEG mg/dL Urine Occult Blood NEG Urine Nitrite NEG Urine Bilirubin NEG Urine Urobilinogen 2.0 MG/DL Urine Leukocyte Esterase NEG Urine RBC 1 /hpf Microscopic Urinalysis Comment CULT NOT INDICATED White Blood Count 9.1 TH/MM3 Red Blood Count 4.49 MIL/MM3 Hemoglobin 14.4 GM/DL Hematocrit 42.5 % Mean Corpuscular Volume 94.7 FL Mean Corpuscular Hemoglobin 32.0 PG Mean Corpuscular Hemoglobin 33.8 % Concent Red Cell Distribution Width 13.6 % Platelet Count 214 TH/MM3 Mean Platelet Volume 8.3 FL Neutrophils (%) (Auto) 53.2 % Lymphocytes (%) (Auto) 32.4 % Monocytes (%) (Auto) 8.8 % Eosinophils (%) (Auto) 5.1 % Basophils (%) (Auto) 0.5 % Neutrophils # (Auto) 4.9 TH/MM3 Lymphocytes # (Auto) 3.0 TH/MM3 Monocytes # (Auto) 0.8 TH/MM3 Eosinophils # (Auto) 0.5 TH/MM3 Basophils # (Auto) 0.0 TH/MM3 CBC Comment DIFF FINAL Differential Comment Sodium Level 141 MEQ/L Potassium Level 3.7 MEQ/L Chloride Level 105 MEQ/L Carbon Dioxide Level 26.1 MEQ/L Anion Gap 10 MEQ/L Blood Urea Nitrogen 13 MG/DL Creatinine 0.51 MG/DL Estimat Glomerular Filtration 162 ML/MIN Rate Random Glucose 92 MG/DL Hemoglobin A1c 5.7 % Calcium Level 8.9 MG/DL Assessment and Plan Problem List: (1) Unstable angina (2) CAD (coronary artery disease) (3) S/P CABG x 5 (4) Tobacco abuse Assessment and Plan 1) Hemodynamically stable post-operative 2) CABGx5 POD #0 MAGAÑA to LAD SVG to Diag SVG to OM2 SVG to OM3 SVG to PLB 3) Con't supportive care Alex Smyth DO Jun 06, 2017 13:30
[2017-06-06] MEDS: CALCIUM CHLORIDE INJ 1 GM in SODIUM CHLORIDE 0.9% INJ 100 ML IV PRN ×2 (14:00→16:29)
[2017-06-06] MEDS ORDERED: DEXMEDETOMIDINE INJ 200 MCG in SODIUM CHLORIDE 0.9% INJ 50 ML IV SCH (14:00)
[2017-06-06] MEDS ORDERED: CLEVIDIPINE INJ 50 ML IV SCH (14:00)
[2017-06-06] MEDS: ACETAMINOPHEN 1000 MG/100 ML VIAL IV SCH ×2 (14:00→20:15)
[2017-06-06] MEDS ORDERED: PHENYLEPHRINE INJ 40 MG in DEXTROSE 5% IN WATE 500 ML INJ 496 ML IV SCH ×2 (14:00)
[2017-06-06] MEDS ORDERED: EPINEPHrine (1:1000) INJ 4 MG in DEXTROSE 5% IN WATER INJ 246 ML IV SCH ×2 (14:00)
[2017-06-06] MEDS ORDERED: INSULIN REGULAR (IV INFUSION) 100 UNITS in SODIUM CHLORIDE 0.9% INJ 99 ML IV SCH (14:00)
--- NOTE | 2017-06-06 14:09 | PD.OP ---
cc: Fariha Carey MD; Alex Smyth DO Operative Report Date of Surgery: Jun 06, 2017 Preoperative Diagnosis: Postoperative Diagnosis: Procedure: 1. Urgent Off-pump Coronary Artery Bypass Grafting x 5 with Left Internal Mammary Artery (MAGAÑA) to Left Anterior Descending (LAD), reverse saphenous vein graft to Diagonal 1, reverse saphenous vein graft to the Posterolateral branch of the Right Coronary Artery (RPLB), sequential reverse saphenous vein graft to the Obtuse Marginal 2 and Obtuse Marginal 3 branches of the Circumflex artery 2. Right Leg Endoscopic Vein Elizabeth 3. Intraoperative Vein Mapping. Surgeon: Fariha Carey Customer Account Specialist(s): Nimisha Lucio Operation and Findings: PREPROCEDURE DIAGNOSES 1. Severe Multi Vessel Coronary Artery Disease. 2. Unstable Angina 3. Mild Left Ventricular Dysfunction POSTPROCEDURE DIAGNOSES Same SURGICAL PROCEDURE 1. Urgent Off-pump Coronary Artery Bypass Grafting x 5 with Left Internal Mammary Artery (MAGAÑA) to Left Anterior Descending (LAD), reverse saphenous vein graft to Diagonal 1, reverse saphenous vein graft to the Posterolateral branch of the Right Coronary Artery (RPLB), sequential reverse saphenous vein graft to the Obtuse Marginal 2 and Obtuse Marginal 3 branches of the Circumflex artery 2. Right Leg Endoscopic Vein Elizabeth 3. Intraoperative Vein Mapping. SURGEON Fariha Carey MD DISTRIBUTION SALES MANAGER KEELEY Mera ANESTHESIA General endotracheal DRYING ROOM SUPERVISOR PEGGY Stewart MD PREPARATION ChloraPrep. COUNTS Needle, sponge, and instrument counts were correct. DRAINS Two 32-Ugandan mediastinal tubes. COMPLICATIONS None. INDICATIONS FOR PROCEDURE The patient is a 66-year-old presenting with chest pain. Patient was noted to have multi-vessel coronary artery disease. The patient is being brought to the operating room for surgical revascularization therapy. PROCEDURE Patient was brought to the operating room and placed supine on the OR table. Following the induction of adequate general endotracheal anesthesia and placement of appropriate monitoring devices, intraoperative vein mapping was performed which revealed suitable-caliber conduit in bilateral lower extremities. The patient was then prepped and draped in standard sterile fashion. Next, 2500 units of intravenous heparin was given. The right greater saphenous vein was harvested endoscopically. This appeared to be a useable- caliber conduit. Simultaneously, a median sternotomy was performed and the left internal mammary artery dissected free off the posterior sternal table. The patient was systemically heparinized and anticoagulation monitored by serial ACT measurements. The internal mammary artery had good pulsatile flow in it and was a good-caliber conduit. The pericardium was then divided in the midline , the cradle created and targets analyzed. At this point, all anastomoses were performed in a beating-heart fashion using the [email or web address] stabilizing system. The left internal mammary artery was anastomosed to the mid LAD (1.5 mm) in an end- to-side fashion using 7-0 Prolene. Segment of saphenous vein graft was then anastomosed to the RPLB (2 mm) in an end-to-side fashion using 7-0 Prolene. The next segment was anastomosed to OM2 (1.75 mm) in a [id number] fashion and to the OM3 (1 mm) in an end-to-side fashion using 7-0 Prolene. The final segment was anastomosed to the D1 (1.5 mm) in an end-to-side fashion using a running 7- 0 Prolene. The proximal anastomoses were then constructed to the ascending aorta in a running manner using 6-0 Prolene. All anastomotic sites were inspected and appeared to be hemostatic and patent. Protamine solution was given. Strict hemostasis was assured. The closure was undertaken. 2 chest tubes were placed. The pericardium was reapproximated in the midline. The sternum was approximated using sternal wires. The muscular and fascial layer were then closed in 3 layers. The endoscopic vein harvest site was closed in 2 layers. The patient tolerated the procedure well and was transferred to CVICU in stable condition. Fariha Carey MD Jun 06, 2017 14:08
[2017-06-06] MEDS ORDERED: LACTATED RINGER'S 1000 ML INJ 2,000 ML IV ONE (15:21)
[2017-06-06] MEDS ORDERED: SODIUM CHLOR 0.9% 250 ML INJ 250 ML IV ONE (15:21)
[2017-06-06] MEDS ORDERED: NORMOSOL R INJ 1,000 ML IV ONE (15:21)
[2017-06-06] MEDS ORDERED: ceFAZolin 2 GM PREMIX 50 ML IV SCH (16:00)
[2017-06-06] MEDS: RESP: ALBUTEROL 2.5 MG/IPRATROPIUM 0.5 MG NEB (SCH) NEB ×2 (16:43→21:39)
[2017-06-06] MEDS: SODIUM CHLOR 0.9% 1000 ML INJ 1,000 ML IV SCH (20:00)
[2017-06-06] MEDS: ceFAZolin 2 GM PREMIX 50 ML IV SCH (20:15)
[2017-06-06] MEDS: SODIUM CHLORIDE 0.9% FLUSH 10 ML FLUSH IV FLUSH SCH (20:15)
[2017-06-06] MEDS: AMIODARONE 200 MG TAB PO SCH (20:16)
[2017-06-06] MEDS: ATORVASTATIN 80 MG TAB PO SCH (20:16)
[2017-06-06] MEDS: buPROPion HCL 150 MG SUSTAINED RELEASE TAB PO SCH (20:17)
[2017-06-06] MEDS: POTASSIUM CHLOR 20 MEQ PREMIX 100 ML IV PRN (22:33)
[2017-06-07] VITALS (18 sets, daily range): BP systolic 110–146; BP diastolic 64–86; PULSE 62–82; RESP 16–22; TEMP 98.5–100; O2SAT 88–99
[2017-06-07] MEDS: KETOROLAC TROMETHAMINE 30 MG/ML (IVP) VIAL IV PUSH PRN ×2 (00:34→16:14)
[2017-06-07] MEDS: ACETAMINOPHEN 1000 MG/100 ML VIAL IV SCH ×2 (02:03→07:57)
[2017-06-07] MEDS: RESP: ALBUTEROL 2.5 MG/IPRATROPIUM 0.5 MG NEB (SCH) NEB ×3 (03:52→20:00)
[2017-06-07] MEDS: PANTOPRAZOLE SOD 40 MG DELAYED RELEASE TAB PO SCH (05:03)
[2017-06-07] MEDS: ceFAZolin 2 GM PREMIX 50 ML IV SCH ×3 (05:03→20:36)
--- NOTE | 2017-06-07 05:27 | RADRPT ---
EXAM DATE/TIME: 06/07/2017 04:23 [facility] COMPARISON: CHEST SINGLE AP, June 06, 2017, 12:56. INDICATIONS : Post CABG MEDICAL HISTORY : None. SURGICAL HISTORY : CABG. ENCOUNTER: Subsequent ACUITY: 1 week PAIN SCORE: 7/10 LOCATION: Bilateral chest FINDINGS: Examination of the chest demonstrates postoperative findings status post median sternotomy. Support l lucy and tubes are in satisfactory position. Endotracheal tube is in place above the tariq. There is no evidence of pneumothorax. CONCLUSION: 1. Postsurgical changes as above. 2. Subsegmental atelectasis both bases. The findings are improved when compared with the prior exam . Ayo Wyatt MD on June 07, 2017 at 5:25 Board Certified Radiologist. This report was verified electronically.
[2017-06-07 05:36] LABS: HEMATOCRIT 36.8 % (39.0-51.0); MEAN CORPUSCULAR HEMOGLOBIN 31.6 PG (27.0-34.0); MEAN CORPUSCULAR HGB CONC 33.2 % (32.0-36.0); PLATELET COUNT 192 TH/MM3 (150-450); RED BLOOD COUNT 3.88 MIL/MM3 (4.50-5.90); RED CELL DISTRIBUTION WIDTH 13.9 % (11.6-17.2); REVIEW FLAG FINAL; WHITE BLOOD COUNT 9.3 TH/MM3 (4.0-11.0)
[2017-06-07 06:09] LABS: BICARBONATE 26.6 MEQ/L (21.0-32.0); MAGNESIUM 2.1 MG/DL (1.5-2.5); POTASSIUM 3.8 MEQ/L (3.5-5.1)
[2017-06-07] MEDS: POTASSIUM CHLOR 20 MEQ PREMIX 100 ML IV PRN (07:58)
[2017-06-07] MEDS ORDERED: SOD PHOSPHATE/SOD BIPHOSPHATE (ADULT) ENEMA 133ML RECTAL PRN (08:15)
[2017-06-07] MEDS ORDERED: FUROSEMIDE 20 MG/2 ML VIAL IV PUSH ONE (08:15)
[2017-06-07] MEDS ORDERED: BISACODYL 10 MG SUPP RECTAL PRN (08:15)
[2017-06-07] MEDS ORDERED: GLUCAGON 1 MG/ML VIAL OTHER PRN (08:15)
[2017-06-07] MEDS ORDERED: POTASSIUM CHLORIDE 20 MEQ CONTROLLED RELEASE TAB PO ONE (08:15)
[2017-06-07] MEDS ORDERED: DEXTROSE 50% IN WATER 50 ML VIAL(D50) IV PRN (08:15)
[2017-06-07] MEDS ORDERED: MORPHINE SULFATE 15 MG CONTROLLED RELEASE TAB PO PRN (09:00)
[2017-06-07] MEDS: SODIUM CHLORIDE 0.9% FLUSH 10 ML FLUSH IV FLUSH SCH ×2 (09:00→22:05)
--- NOTE | 2017-06-07 09:07 | PD.CAR.PN ---
CVT Progress Note Subjective/Hospital Course: 66/ male with unstable angina, abnormal ECG, underwent cardiac cath 06/[address] Smyth ( Dr Holt pt ) , found to have multivessel disease, EF 45% PMH: CAD, chronic low back pain on MS IR at home , HLP, tobacco abuse, neuropathy Surgery: 1. Urgent Off-pump Coronary Artery Bypass Grafting x 5 with Left Internal Mammary Artery (MAGAÑA) to Left Anterior Descending (LAD), reverse saphenous vein graft to Diagonal 1, reverse saphenous vein graft to the Posterolateral branch of the Right Coronary Artery (RPLB), sequential reverse saphenous vein graft to the Obtuse Marginal 2 and Obtuse Marginal 3 branches of the Circumflex artery 2. Right Leg Endoscopic Vein Butler 06/06 3500cc crystalloid, 290cc cell saver, EBL 250cc pt extubated after surgery 06/07 pt up in chair, requesting his pain meds changed to MS IR prn pt having significant back pain ( chronic ) start low dose BB, on statin , ASA, Plavix, eval for low dose tracy when BP tolerates leave chest tubes in , will transfer to stepdown Objective: GENERAL: A&O x 3 SKIN: Warm and dry. prevena to chest, tracy wrap to right leg HEAD: Normocephalic. EYES: No scleral icterus. No injection or drainage. NECK: Supple, trachea midline. No JVD or lymphadenopathy. CARDIOVASCULAR: Regular rate and rhythm without murmurs, gallops, or rubs. mild edema RESPIRATORY: Breath sounds equal bilaterally. No accessory muscle use. diminished in bases / chest tube to wall suction/ no air leak GASTROINTESTINAL: Abdomen soft, non-tender, nondistended. MUSCULOSKELETAL: No cyanosis, or edema. BACK: Nontender without obvious deformity. No CVA tenderness. Vital Signs Date Time Temp Pulse Resp B/P Pulse Ox O2 Delivery O2 Flow Rate FiO2 06/07/17 08:17 98.5 72 18 110/69 95 06/07/17 08:00 62 06/07/17 08:00 110/64 Arterial Line 06/07/17 07:00 95 2.00 06/07/17 07:00 98.5 68 18 117/64 95 111/86 06/07/17 04:00 99.1 66 18 124/69 99 06/07/17 04:00 99 Nasal Cannula 4.00 06/07/17 04:00 66 06/07/17 00:00 100.0 70 18 116/68 98 06/07/17 00:00 70 06/07/17 00:00 98 Nasal Cannula 4.00 06/06/17 20:00 98 Nasal Cannula 4.00 06/06/17 20:00 75 06/06/17 20:00 100.8 75 18 129/84 98 137/56 06/06/17 16:40 97 Nasal Cannula 3.00 06/06/17 16:40 18 06/06/17 16:00 60 06/06/17 16:00 99 Nasal Cannula 3.00 06/06/17 15:00 98.4 64 18 136/68 97 134/62 06/06/17 15:00 97 4.00 06/06/17 14:58 18 06/06/17 14:58 18 06/06/17 14:00 98.5 62 18 131/72 95 148/72 06/06/17 13:40 92 Nasal Cannula 4 06/06/17 13:40 91 Nasal Cannula 5.00 06/06/17 13:40 40 06/06/17 13:30 98.8 58 24 94/27 91 130/66 06/06/17 13:15 61 16 126/69 94 122/62 06/06/17 13:00 40 06/06/17 13:00 62 20 106/59 97 132/70 06/06/17 13:00 97 Mechanical Ventilator 40 06/06/17 12:50 97 Mechanical Ventilator 50 06/06/17 12:50 50 06/06/17 12:50 65 06/06/17 12:50 97 50 06/06/17 12:50 96.6 57 9 106/59 97 105/48 Labs: Laboratory Tests Test 06/07/17 05:00 White Blood Count 9.3 TH/MM3 (4.0-11.0) Red Blood Count 3.88 MIL/MM3 (4.50-5.90) Hemoglobin 12.2 GM/DL (13.0-17.0) Hematocrit 36.8 % (39.0-51.0) Mean Corpuscular Volume 95.0 FL (80.0-100.0) Mean Corpuscular Hemoglobin 31.6 PG (27.0-34.0) Mean Corpuscular Hemoglobin 33.2 % Concent (32.0-36.0) Red Cell Distribution Width 13.9 % (11.6-17.2) Platelet Count 192 TH/MM3 (150-450) Mean Platelet Volume 8.0 FL (7.0-11.0) Sodium Level 139 MEQ/L (136-145) Potassium Level 3.8 MEQ/L (3.5-5.1) Chloride Level 105 MEQ/L (98-107) Carbon Dioxide Level 26.6 MEQ/L (21.0-32.0) Anion Gap 7 MEQ/L (5-15) Blood Urea Nitrogen 9 MG/DL (7-18) Creatinine 0.46 MG/DL (0.60-1.30) Estimat Glomerular Filtration 183 ML/MIN Rate (>89) Random Glucose 106 MG/DL (74-106) Calcium Level 7.6 MG/DL (8.5-10.1) Magnesium Level 2.1 MG/DL (1.5-2.5) Result Diagram: 06/07/17 0500 06/07/17 0500 Telemetry: NSR (1) Unstable angina (2) CAD (coronary artery disease) (3) S/P CABG x 5 Plan: ASA, statin BB EF 40% / start low dose tracy when BP tolerates gentle diuresis aggressive pulm toileting / low grade temp last night OOB / PT/ consult OT transfer to stepdown (4) Tobacco abuse Plan: smoking cessation (5) Hyperlipemia Plan: on statin Sunshine Altamirano Jun 07, 2017 09:07
[2017-06-07] MEDS: CLOPIDOGREL 75 MG TAB PO SCH (09:08)
[2017-06-07] MEDS: MULTIVITAMINS/MINERALS THERAPEUTIC TAB PO SCH (09:09)
[2017-06-07] MEDS: AMIODARONE 200 MG TAB PO SCH ×2 (09:09→22:06)
[2017-06-07] MEDS: buPROPion HCL 150 MG SUSTAINED RELEASE TAB PO SCH ×2 (09:09→22:06)
[2017-06-07] MEDS: ASPIRIN 81 MG CHEW TAB PO SCH (09:10)
[2017-06-07] MEDS: METOPROLOL TARTRATE 25 MG TAB PO SCH ×2 (09:10→22:06)
[2017-06-07] MEDS: DOCUSATE SODIUM 100 MG CAP PO SCH ×2 (09:10→22:05)
[2017-06-07] MEDS: MAGNESIUM HYDROXIDE SUSP 30 ML CUP PO SCH (09:12)
[2017-06-07] MEDS: INSULIN ASPART SUPPLEMENTAL SCALE SQ SCH ×4 (10:00→22:00)
--- NOTE | 2017-06-07 11:09 | EKG ---
Date Performed: 06/07/2017 Time Performed: 04:53:00 PTAGE: 66 years EKG: Sinus rhythm Generalized low QRS voltages Borderline ECG Since PREVIOUS TRACING , no significant change noted PREVIOUS TRACIN06/05/2017 08.41 DOCTOR: Ayo Bronson Interpretating Date/Time 06/07/2017 11:07:44
--- NOTE | 2017-06-07 11:27 | PD.CARD.PN ---
Subjective Subjective Remarks No chest pain, no shortness of breath Doing well Objective Medications Current Medications Medications (Trade) Dose Ordered Sig/Radha Route Start Time Stop Time Status Last Admin (NS 1000 ml Inj) 1,000 ml @ 30 mls/hr Q24H IV 06/05/17 08:15 06/06/17 20:00 (Lipitor) 80 mg HS PO 06/05/17 21:00 06/06/17 20:16 (Wellbutrin Sr) 150 mg BID PO 06/05/17 21:00 06/07/17 09:09 (NS Flush) 2 ml BID IV FLUSH 06/05/17 21:00 06/06/17 20:15 (NS Flush) 2 ml UNSCH PRN IV FLUSH 06/05/17 11:30 (Pill Splitter) 1 ea UNSCH PRN OTHER 06/05/17 11:45 (Aspirin Chew) 81 mg DAILY PO 06/07/17 09:00 06/07/17 09:10 (Plavix) 75 mg DAILY PO 06/07/17 09:00 06/07/17 09:08 (Protonix) 40 mg DAILY@06 PO 06/07/17 06:00 06/07/17 05:03 (Cordarone) 200 mg Q12HR PO 06/06/17 21:00 06/07/17 09:09 (Tylenol) 650 mg Q4H PRN PO 06/06/17 12:30 (Toradol Inj) 15 mg Q6H PRN IV PUSH 06/06/17 12:30 06/08/17 12:29 06/07/17 00:34 (Zofran Inj) 4 mg Q6H PRN IV PUSH 06/06/17 12:30 Hydralazine HCl 10 mg 10 mg Q4H PRN IV 06/06/17 12:30 Magnesium Sulfate 2 gm/Sodium Chloride 104 ml @ 100 mls/hr UNSCH PRN IV 06/06/17 12:30 Magnesium Sulfate 2 gm/Sodium Chloride 104 ml @ 50 mls/hr UNSCH PRN IV 06/06/17 12:30 (Ancef 2 Gm Premix) 50 ml @ 100 mls/hr Q8H IV 06/06/17 20:00 06/08/17 04:29 06/07/17 05:03 (Colace) 100 mg BID PO 06/07/17 09:00 06/07/17 09:10 (Theragran M Tab) 1 tab DAILY PO 06/07/17 09:00 06/07/17 09:09 (Milk Of Magnesia Liq) 30 ml DAILY PO 06/07/17 09:00 06/07/17 09:12 (Miralax) 17 gm DAILY PO 06/08/17 09:00 (Senokot) 8.6 mg HS PO 06/07/17 21:00 (Fleets Enema (Adult)) 133 ml UNSCH PRN RECTAL 06/07/17 08:15 (Lopressor) 12.5 mg BID PO 06/07/17 09:00 06/07/17 09:10 (NovoLOG SUPPLEMENTAL SCALE) 1 02,06,10,14,18,22 SQ 06/07/17 10:00 (D50w (Vial) Inj) 50 ml UNSCH PRN IV 06/07/17 08:15 (Glucagon Inj) 1 mg UNSCH PRN OTHER 06/07/17 08:15 (Oramorph Sr) 15 mg Q4HR PRN PO 06/07/17 09:00 Vital Signs / I&O Vital Signs Date Time Temp Pulse Resp B/P Pulse Ox O2 Delivery O2 Flow Rate FiO2 06/07/17 08:17 98.5 72 18 110/69 95 06/07/17 08:00 62 06/07/17 08:00 110/64 Arterial Line 06/07/17 07:00 95 2.00 06/07/17 07:00 98.5 68 18 117/64 95 111/86 06/07/17 04:00 99.1 66 18 124/69 99 06/07/17 04:00 99 Nasal Cannula 4.00 06/07/17 04:00 66 06/07/17 00:00 100.0 70 18 116/68 98 06/07/17 00:00 70 06/07/17 00:00 98 Nasal Cannula 4.00 06/06/17 20:00 98 Nasal Cannula 4.00 06/06/17 20:00 75 06/06/17 20:00 100.8 75 18 129/84 98 137/56 06/06/17 16:40 97 Nasal Cannula 3.00 06/06/17 16:40 18 06/06/17 16:00 60 06/06/17 16:00 99 Nasal Cannula 3.00 06/06/17 15:00 98.4 64 18 136/68 97 134/62 06/06/17 15:00 97 4.00 06/06/17 14:58 18 06/06/17 14:58 18 06/06/17 14:00 98.5 62 18 131/72 95 148/72 06/06/17 13:40 92 Nasal Cannula 4 06/06/17 13:40 91 Nasal Cannula 5.00 06/06/17 13:40 40 06/06/17 13:30 98.8 58 24 94/27 91 130/66 06/06/17 13:15 61 16 126/69 94 122/62 06/06/17 13:00 40 06/06/17 13:00 62 20 106/59 97 132/70 06/06/17 13:00 97 Mechanical Ventilator 40 06/06/17 12:50 97 Mechanical Ventilator 50 06/06/17 12:50 50 06/06/17 12:50 65 06/06/17 12:50 97 50 06/06/17 12:50 96.6 57 9 106/59 97 105/48 I/O 06/06/17 06/06/17 06/06/17 06/07/17 06/07/17 06/07/17 07:00 15:00 23:00 07:00 15:00 23:00 Intake Total 240 ml 2000 ml 1047 ml Output Total 940 ml 950 ml Balance 240 ml 1060 ml 97 ml Intake Oral 240 ml 240 ml IV Total 2000 ml 807 ml Output Urine Total 660 ml 740 ml Gastric Drainage Total 10 ml Chest Tube Drainage Total 270 ml 210 ml # Voids 4 # Bowel Movements 0 0 Physical Exam GENERAL: NAD, AAOx3 SKIN: Warm and dry. HEAD: Atraumatic. Normocephalic. EYES: Pupils equal and round. No scleral icterus. No injection or drainage. ENT: No nasal bleeding or discharge. Mucous membranes pink and moist. NECK: Trachea midline. No JVD. CARDIOVASCULAR: Regular rate and rhythm. No murmurs noted. Sternotomy with wound vac RESPIRATORY: No accessory muscle use. Clear to auscultation. Breath sounds equal bilaterally. GASTROINTESTINAL: Abdomen soft, non-tender, nondistended. Hepatic and splenic margins not palpable. MUSCULOSKELETAL: Extremities without clubbing, cyanosis, or edema. No obvious deformities. NEUROLOGICAL: No focal deficits Laboratory Laboratory Tests Test 06/07/17 05:00 White Blood Count 9.3 TH/MM3 Red Blood Count 3.88 MIL/MM3 Hemoglobin 12.2 GM/DL Hematocrit 36.8 % Mean Corpuscular Volume 95.0 FL Mean Corpuscular Hemoglobin 31.6 PG Mean Corpuscular Hemoglobin 33.2 % Concent Red Cell Distribution Width 13.9 % Platelet Count 192 TH/MM3 Mean Platelet Volume 8.0 FL Sodium Level 139 MEQ/L Potassium Level 3.8 MEQ/L Chloride Level 105 MEQ/L Carbon Dioxide Level 26.6 MEQ/L Anion Gap 7 MEQ/L Blood Urea Nitrogen 9 MG/DL Creatinine 0.46 MG/DL Estimat Glomerular Filtration 183 ML/MIN Rate Random Glucose 106 MG/DL Calcium Level 7.6 MG/DL Magnesium Level 2.1 MG/DL Assessment and Plan Problem List: (1) Unstable angina (2) CAD (coronary artery disease) (3) S/P CABG x 5 (4) Tobacco abuse (5) Hyperlipemia Assessment and Plan 1) Hemodynamically stable post-operative 2) CABGx5 POD #1 MAGAÑA to LAD SVG to Diag SVG to OM2 SVG to OM3 SVG to PLB 3) Con't supportive care 4) ASA/BB/Plavix/Lipitor/Statin 5) [facility] 6) Follow up with Dr. Holt on discharge Alex Smyth DO Jun 07, 2017 11:27
--- NOTE | 2017-06-07 12:35 | HHI.FF ---
Face to Face Verification Diagnosis: (1) Unstable angina (2) CAD (coronary artery disease) (3) Tobacco abuse (4) Hyperlipemia (5) S/P CABG x 5 Physical Therapy Order: Evaluate and Treat Home Health Nursing Order: Signs/symptoms of disease process Medication education-adverse effect Wound care and dressing changes Nursing assessment with vital signs Instructions: Heart and Vascular Surgery patients *Special attention to sternal dressing Mandatory frequency Assess and evaluation, 4 days in a row The next week 3X week 2 times a week for 4 weeks 1 time a week for 5 weeks Schedule Heart and Vascular patients for full 60 day certification period Initial visit Review Open Heart Surgery Discharge Instructions (Sternal precautions, Activity, Elastic hose, Incision care, Driving, Incentive spirometry, Smoking, Basile, Work and other) Need Betadine to paint incision Medication reconciliation Importance of follow up care/ check on appointments Make calendar record temperature daily When to call [facility] nurse, review instructions, phone list Incentive Spirometry, demonstration Visit 1- Begin discharge instruction for patient family and/ or caregiver using teach back method- Signs and symptoms of infection Disease characteristics Medicines and side effects Foods and nutrition/ appetite Infection control/ hand washing/ hygiene Visit 2- Continue teaching Discharge instructions- include additional information on smoking cessation , sternal dressing (sternal vac) Visit 3- Continue teaching- Cough and deep breathing, incision monitoring. Choose my plate Visit 4- Continue teaching- Discuss limitations Discuss how they are feeling Discuss progress toward goals Remaining visits- continue teaching and monitoring Incentive spirometry Q1 hr x 10, while awake, also use acapella device hourly whole awake Sternal Breast Bone Precautions: NO pushing or pulling, ( pt must use sternal pillow to support chest with all activities and with coughing ( takes up to 3 months breast bone to heal ) All females to wear sternal bra , launder as needed Daily incision care: ok to shower daily, no tub bath. Wash all incisions with liquid dial soap, clean wash cloth to each site, rinse and pat dry. Observe for any signs of infection, such as drainage which is dark yellow, tucker, green or foul smelling. Immediately report to the surgeon any drainage from the chest incision, or legs, and for any abnormal drainage from the chest tube sites. Notify surgeon if any temp >101.5 degrees F. When specialty dressing removed/ or if you do not have one, continue to shower daily as above, then rinse and pat incision dry and paint with betadine daily x 5 days. Allow steri strips to fall off if you have any. Avoid lotions, creams, salves, oils, etc. for the first month Please see attached forms for additional instructions regarding post Open Heart specialty wound vacuum dressings. WILL or Prevena , Dressing to be removed by Nursing staff on _06/13/17 F/U appointment: as per DC instructions: PCP in 2 weeks, CV surgeon 2 weeks, Perinatal Specialist 3-4 weeks For any questions regarding incisions/ dressing / meds / post op care or above Symptoms, Saturday 8am-5pm Heart & Vascular Surgery Office ( Dr. Carey & Dr. Lau), After Hours / Nights (5pm -8am) Weekends and Holidays Please call [facility] ([facility]) Charge Nurse PREVENA Single Use Negative Wound Therapy System Caregiver Instruction Sheet 1. A Prevena dressing system was applied to the chest incision during surgery , to promote wound healing. It works via a suction device (negative pressure wound therapy) to remove low to moderate levels of exudate (drainage) and infectious materials. We recommend that the device stay in place for up to seven days, from day of surgery. 2. Day of Surgery___06/06/17 Day of Removal ___06/13/17 3. The dressing should only be removed by a health neonatal intensive care unit nurse. Please arrange removal of device to coincide with Home Health visit and or with Nursing staff at Rehab 4. If skin reddening or irritation of skin occurs, or excessive drainage, please notify the Cardiovascular Surgeons office at [phone]. 5. Light showering is permissible; however the pump should be disconnected and placed in safe location, where it will not get wet. The dressing should not be exposed to direct spray or submerged in water. No bath tub / shower only. Ensure the end of the tubing attached to the dressing is facing down so that water does not enter the top of the tube. 6. To remove Prevena dressing: press purple button to turn off device / remove the suction. Then disconnect the tubing from the pump. The fixation strips should be stretched away from the skin and the dressing lifted at one corner and peeled back until it has been fully removed. 7. After removal, it is ok to shower daily using liquid dial soap and clean wash cloth, rinse and pat dry, and leave incision open to air dry. For any concerns regarding Prevena dressing, and or wounds, please contact Natasha Pandya, patient navigator at [phone] or notify the Cardiovascular Surgeons office at [phone]. I have seen patient Bryson Quintana on 06/07/17. My clinical findings support the need for the requested home health care services because: Deconditioned w/ increased weakness I certify that my clinical findings support that this patient is homebound because: Post-op weakness Sunshine Altamirano Jun 07, 2017 12:35
[2017-06-07] MEDS: SENNOSIDES 8.6 MG TAB PO SCH (22:06)
[2017-06-07] MEDS: ATORVASTATIN 80 MG TAB PO SCH (22:06)
[2017-06-08] VITALS (24 sets, daily range): BP systolic 121–142; BP diastolic 66–78; PULSE 66–86; RESP 16–20; TEMP 98.1–98.8; O2SAT 91–94
[2017-06-08] MEDS: INSULIN ASPART SUPPLEMENTAL SCALE SQ SCH ×3 (02:00→10:00)
[2017-06-08] MEDS: ceFAZolin 2 GM PREMIX 50 ML IV SCH (03:07)
[2017-06-08] MEDS: PANTOPRAZOLE SOD 40 MG DELAYED RELEASE TAB PO SCH (05:54)
[2017-06-08 06:42] LABS: AUTOMATED NEUTROPHIL # 8.1 TH/MM3 (1.8-7.7); BASOPHIL % 0.3 % (0.0-2.0); EOSINOPHIL # 0.4 TH/MM3 (0-0.4); EOSINOPHIL % 3.3 % (0.0-4.0); HEMATOCRIT 34.6 % (39.0-51.0); HEMO FLAGS DIFF FINAL; LYMPH % 16.1 % (9.0-44.0); LYMPHOCYTE # 1.8 TH/MM3 (1.0-4.8); MEAN CELL VOLUME 94.7 FL (80.0-100.0); MEAN CORPUSCULAR HEMOGLOBIN 31.1 PG (27.0-34.0); MEAN CORPUSCULAR HGB CONC 32.9 % (32.0-36.0); MONO % 8.1 % (0.0-8.0); NEUT % 72.2 % (16.0-70.0); PLATELET COUNT 204 TH/MM3 (150-450); RED BLOOD COUNT 3.66 MIL/MM3 (4.50-5.90); RED CELL DISTRIBUTION WIDTH 13.7 % (11.6-17.2); WHITE BLOOD COUNT 11.3 TH/MM3 (4.0-11.0)
[2017-06-08 07:18] LABS: BICARBONATE 27.3 MEQ/L (21.0-32.0); MAGNESIUM 2.2 MG/DL (1.5-2.5); POTASSIUM 3.6 MEQ/L (3.5-5.1)
[2017-06-08] MEDS: SODIUM CHLOR 0.9% 1000 ML INJ 1,000 ML IV SCH (08:15)
[2017-06-08] MEDS: RESP: ALBUTEROL 2.5 MG/IPRATROPIUM 0.5 MG NEB (SCH) NEB ×3 (08:57→20:35)
[2017-06-08] MEDS: POLYETHYLENE GLYCOL 17 GM PKG PO SCH (09:01)
[2017-06-08] MEDS: MAGNESIUM HYDROXIDE SUSP 30 ML CUP PO SCH (09:01)
[2017-06-08] MEDS: CLOPIDOGREL 75 MG TAB PO SCH (09:02)
[2017-06-08] MEDS: buPROPion HCL 150 MG SUSTAINED RELEASE TAB PO SCH ×2 (09:02→22:50)
[2017-06-08] MEDS: AMIODARONE 200 MG TAB PO SCH ×2 (09:03→22:50)
[2017-06-08] MEDS: MULTIVITAMINS/MINERALS THERAPEUTIC TAB PO SCH (09:03)
[2017-06-08] MEDS: METOPROLOL TARTRATE 25 MG TAB PO SCH ×2 (09:03→22:52)
[2017-06-08] MEDS: DOCUSATE SODIUM 100 MG CAP PO SCH ×2 (09:03→22:50)
[2017-06-08] MEDS: ASPIRIN 81 MG CHEW TAB PO SCH (09:03)
[2017-06-08] MEDS: SODIUM CHLORIDE 0.9% FLUSH 10 ML FLUSH IV FLUSH SCH ×2 (09:04→22:56)
--- NOTE | 2017-06-08 10:16 | PD.CAR.PN ---
CVT Progress Note Subjective/Hospital Course: 66/ male with unstable angina, abnormal ECG, underwent cardiac cath 06/[address] Smyth ( Dr Holt pt ) , found to have multivessel disease, EF 45% PMH: CAD, chronic low back pain on MS IR at home , HLP, tobacco abuse, neuropathy Surgery: 1. Urgent Off-pump Coronary Artery Bypass Grafting x 5 with Left Internal Mammary Artery (MAGAÑA) to Left Anterior Descending (LAD), reverse saphenous vein graft to Diagonal 1, reverse saphenous vein graft to the Posterolateral branch of the Right Coronary Artery (RPLB), sequential reverse saphenous vein graft to the Obtuse Marginal 2 and Obtuse Marginal 3 branches of the Circumflex artery 2. Right Leg Endoscopic Vein [place] 06/06 3500cc crystalloid, 290cc cell saver, EBL 250cc pt extubated after surgery 06/07 pt up in chair, requesting his pain meds changed to MS IR prn pt having significant back pain ( chronic ) start low dose BB, on statin , ASA, Plavix, eval for low dose tracy when BP tolerates leave chest tubes in , will transfer to stepdown 06/08 Doing well D/C CT today Increase beta bianca Discharge planning Objective: Vital Signs Date Time Temp Pulse Resp B/P Pulse Ox O2 Delivery O2 Flow Rate FiO2 06/08/17 09:00 91 21 06/08/17 08:00 98.1 83 20 142/77 94 06/08/17 08:00 81 06/08/17 07:00 79 06/08/17 06:00 80 06/08/17 05:00 78 06/08/17 04:00 79 06/08/17 03:00 80 06/08/17 03:00 98.8 81 20 121/66 91 06/08/17 02:00 76 06/08/17 01:00 80 06/08/17 00:00 86 06/07/17 23:00 98.9 82 16 122/65 88 06/07/17 23:00 78 06/07/17 22:00 76 06/07/17 21:00 74 06/07/17 20:00 78 06/07/17 19:00 96 Room Air 06/07/17 19:00 98.9 80 22 146/80 96 06/07/17 19:00 76 06/07/17 18:00 76 06/07/17 17:16 18 06/07/17 17:00 76 06/07/17 16:00 76 06/07/17 16:00 99.1 78 18 122/73 94 06/07/17 15:00 74 06/07/17 14:00 72 06/07/17 13:00 70 06/07/17 12:00 68 06/07/17 11:00 98.7 70 18 122/79 93 06/07/17 11:00 95 Nasal Cannula 2.00 Labs: Laboratory Tests Test 06/08/17 05:50 White Blood Count 11.3 TH/MM3 (4.0-11.0) Red Blood Count 3.66 MIL/MM3 (4.50-5.90) Hemoglobin 11.4 GM/DL (13.0-17.0) Hematocrit 34.6 % (39.0-51.0) Mean Corpuscular Volume 94.7 FL (80.0-100.0) Mean Corpuscular Hemoglobin 31.1 PG (27.0-34.0) Mean Corpuscular Hemoglobin 32.9 % Concent (32.0-36.0) Red Cell Distribution Width 13.7 % (11.6-17.2) Platelet Count 204 TH/MM3 (150-450) Mean Platelet Volume 7.9 FL (7.0-11.0) Neutrophils (%) (Auto) 72.2 % (16.0-70.0) Lymphocytes (%) (Auto) 16.1 % (9.0-44.0) Monocytes (%) (Auto) 8.1 % (0.0-8.0) Eosinophils (%) (Auto) 3.3 % (0.0-4.0) Basophils (%) (Auto) 0.3 % (0.0-2.0) Neutrophils # (Auto) 8.1 TH/MM3 (1.8-7.7) Lymphocytes # (Auto) 1.8 TH/MM3 (1.0-4.8) Monocytes # (Auto) 0.9 TH/MM3 (0-0.9) Eosinophils # (Auto) 0.4 TH/MM3 (0-0.4) Basophils # (Auto) 0.0 TH/MM3 (0-0.2) CBC Comment DIFF FINAL Differential Comment Sodium Level 138 MEQ/L (136-145) Potassium Level 3.6 MEQ/L (3.5-5.1) Chloride Level 102 MEQ/L (98-107) Carbon Dioxide Level 27.3 MEQ/L (21.0-32.0) Anion Gap 9 MEQ/L (5-15) Blood Urea Nitrogen 10 MG/DL (7-18) Creatinine 0.48 MG/DL (0.60-1.30) Estimat Glomerular Filtration 174 ML/MIN Rate (>89) Random Glucose 84 MG/DL (74-106) Calcium Level 7.8 MG/DL (8.5-10.1) Magnesium Level 2.2 MG/DL (1.5-2.5) Result Diagram: 06/08/17 0550 06/08/17 0550 (1) Unstable angina (2) CAD (coronary artery disease) (3) S/P CABG x 5 Plan: ASA, statin BB EF 40% / start low dose tracy when BP tolerates gentle diuresis aggressive pulm toileting / low grade temp last night OOB / PT/ consult OT transfer to stepdown (4) Tobacco abuse Plan: smoking cessation (5) Hyperlipemia Plan: on statin Fariha Carey MD Jun 08, 2017 10:16
--- NOTE | 2017-06-08 11:27 | PD.CARD.PN ---
Subjective Subjective Remarks No chest pain/SOB Doing well overall Dr. Carey taking out his chest tubes Objective Medications Current Medications Medications (Trade) Dose Ordered Sig/Radha Route Start Time Stop Time Status Last Admin (NS 1000 ml Inj) 1,000 ml @ 30 mls/hr Q24H IV 06/05/17 08:15 06/06/17 20:00 (Lipitor) 80 mg HS PO 06/05/17 21:00 06/07/17 22:06 (Wellbutrin Sr) 150 mg BID PO 06/05/17 21:00 06/08/17 09:02 (NS Flush) 2 ml BID IV FLUSH 06/05/17 21:00 06/08/17 09:04 (NS Flush) 2 ml UNSCH PRN IV FLUSH 06/05/17 11:30 (Pill Splitter) 1 ea UNSCH PRN OTHER 06/05/17 11:45 (Aspirin Chew) 81 mg DAILY PO 06/07/17 09:00 06/08/17 09:03 (Plavix) 75 mg DAILY PO 06/07/17 09:00 06/08/17 09:02 (Protonix) 40 mg DAILY@06 PO 06/07/17 06:00 06/08/17 05:54 (Cordarone) 200 mg Q12HR PO 06/06/17 21:00 06/08/17 09:03 (Tylenol) 650 mg Q4H PRN PO 06/06/17 12:30 (Toradol Inj) 15 mg Q6H PRN IV PUSH 06/06/17 12:30 06/08/17 12:29 06/07/17 16:14 (Zofran Inj) 4 mg Q6H PRN IV PUSH 06/06/17 12:30 Hydralazine HCl 10 mg 10 mg Q4H PRN IV 06/06/17 12:30 Magnesium Sulfate 2 gm/Sodium Chloride 104 ml @ 100 mls/hr UNSCH PRN IV 06/06/17 12:30 (Magnesium Sulfate Inj/NS Inj) 104 ml @ 50 mls/hr UNSCH PRN IV 06/06/17 12:30 (Colace) 100 mg BID PO 06/07/17 09:00 06/08/17 09:03 (Theragran M Tab) 1 tab DAILY PO 06/07/17 09:00 06/08/17 09:03 (Milk Of Magnesia Liq) 30 ml DAILY PO 06/07/17 09:00 06/08/17 09:01 (Miralax) 17 gm DAILY PO 06/08/17 09:00 06/08/17 09:01 (Senokot) 8.6 mg HS PO 06/07/17 21:00 06/07/17 22:06 (Fleets Enema (Adult)) 133 ml UNSCH PRN RECTAL 06/07/17 08:15 (NovoLOG SUPPLEMENTAL SCALE) 1 02,06,10,14,18,22 SQ 06/07/17 10:00 (D50w (Vial) Inj) 50 ml UNSCH PRN IV 06/07/17 08:15 (Glucagon Inj) 1 mg UNSCH PRN OTHER 06/07/17 08:15 (Oramorph Sr) 15 mg Q4HR PRN PO 06/07/17 09:00 06/07/17 18:16 (Lopressor) 25 mg BID PO 06/08/17 21:00 Vital Signs / I&O Vital Signs Date Time Temp Pulse Resp B/P Pulse Ox O2 Delivery O2 Flow Rate FiO2 06/08/17 09:00 91 21 06/08/17 08:00 98.1 83 20 142/77 94 06/08/17 08:00 81 06/08/17 07:00 79 06/08/17 06:00 80 06/08/17 05:00 78 06/08/17 04:00 79 06/08/17 03:00 80 06/08/17 03:00 98.8 81 20 121/66 91 06/08/17 02:00 76 06/08/17 01:00 80 06/08/17 00:00 86 06/07/17 23:00 98.9 82 16 122/65 88 06/07/17 23:00 78 06/07/17 22:00 76 06/07/17 21:00 74 06/07/17 20:00 78 06/07/17 19:00 96 Room Air 06/07/17 19:00 98.9 80 22 146/80 96 06/07/17 19:00 76 06/07/17 18:00 76 06/07/17 17:16 18 06/07/17 17:00 76 06/07/17 16:00 76 06/07/17 16:00 99.1 78 18 122/73 94 06/07/17 15:00 74 06/07/17 14:00 72 06/07/17 13:00 70 06/07/17 12:00 68 I/O 06/07/17 06/07/17 06/07/17 06/08/17 06/08/17 06/08/17 07:00 15:00 23:00 07:00 15:00 23:00 Intake Total 1047 ml 480 ml 580 ml Output Total 950 ml 110 ml 360 ml Balance 97 ml 370 ml 220 ml Intake Oral 240 ml 480 ml 480 ml IV Total 807 ml 100 ml Output Urine Total 740 ml 350 ml Chest Tube Drainage Total 210 ml 110 ml 10 ml # Voids 3 1 # Bowel Movements 0 Physical Exam GENERAL: NAD, AAOx3 SKIN: Warm and dry. HEAD: Atraumatic. Normocephalic. EYES: Pupils equal and round. No scleral icterus. No injection or drainage. ENT: No nasal bleeding or discharge. Mucous membranes pink and moist. NECK: Trachea midline. No JVD. CARDIOVASCULAR: Regular rate and rhythm. No murmurs noted. Sternotomy with wound vac RESPIRATORY: No accessory muscle use. Clear to auscultation. Breath sounds equal bilaterally. GASTROINTESTINAL: Abdomen soft, non-tender, nondistended. Hepatic and splenic margins not palpable. MUSCULOSKELETAL: Extremities without clubbing, cyanosis, or edema. No obvious deformities. NEUROLOGICAL: No focal deficits Laboratory Laboratory Tests Test 06/08/17 05:50 White Blood Count 11.3 TH/MM3 Red Blood Count 3.66 MIL/MM3 Hemoglobin 11.4 GM/DL Hematocrit 34.6 % Mean Corpuscular Volume 94.7 FL Mean Corpuscular Hemoglobin 31.1 PG Mean Corpuscular Hemoglobin 32.9 % Concent Red Cell Distribution Width 13.7 % Platelet Count 204 TH/MM3 Mean Platelet Volume 7.9 FL Neutrophils (%) (Auto) 72.2 % Lymphocytes (%) (Auto) 16.1 % Monocytes (%) (Auto) 8.1 % Eosinophils (%) (Auto) 3.3 % Basophils (%) (Auto) 0.3 % Neutrophils # (Auto) 8.1 TH/MM3 Lymphocytes # (Auto) 1.8 TH/MM3 Monocytes # (Auto) 0.9 TH/MM3 Eosinophils # (Auto) 0.4 TH/MM3 Basophils # (Auto) 0.0 TH/MM3 CBC Comment DIFF FINAL Differential Comment Sodium Level 138 MEQ/L Potassium Level 3.6 MEQ/L Chloride Level 102 MEQ/L Carbon Dioxide Level 27.3 MEQ/L Anion Gap 9 MEQ/L Blood Urea Nitrogen 10 MG/DL Creatinine 0.48 MG/DL Estimat Glomerular Filtration 174 ML/MIN Rate Random Glucose 84 MG/DL Calcium Level 7.8 MG/DL Magnesium Level 2.2 MG/DL Assessment and Plan Problem List: (1) Unstable angina (2) CAD (coronary artery disease) (3) S/P CABG x 5 (4) Tobacco abuse (5) Hyperlipemia Assessment and Plan 1) Hemodynamically stable post-operative 2) CABGx5 POD #2 MAGAÑA to LAD SVG to Diag SVG to OM2 SVG to OM3 SVG to PLB 3) Con't supportive care 4) ASA/BB/Plavix/Lipitor/Statin 5) Agree with increased BB 6) Ambulate after chest tubes removed 7) On discharge follow up with Alex Bruno DO Jun 08, 2017 11:27
[2017-06-08] MEDS ORDERED: PILL SPLITTER OTHER PRN (12:15)
[2017-06-08] MEDS ORDERED: METOPROLOL TARTRATE 25 MG TAB PO ONE (12:15)
[2017-06-08] MEDS: SENNOSIDES 8.6 MG TAB PO SCH (22:50)
[2017-06-08] MEDS: ATORVASTATIN 80 MG TAB PO SCH (22:50)
[2017-06-09] VITALS (28 sets, daily range): BP systolic 117–141; BP diastolic 71–85; PULSE 59–85; RESP 16–20; TEMP 97.8–98.6; O2SAT 92–97
[2017-06-09] MEDS: PANTOPRAZOLE SOD 40 MG DELAYED RELEASE TAB PO SCH (06:00)
[2017-06-09] MEDS: RESP: ALBUTEROL 2.5 MG/IPRATROPIUM 0.5 MG NEB (SCH) NEB ×2 (07:39→14:56)
[2017-06-09] MEDS: SODIUM CHLOR 0.9% 1000 ML INJ 1,000 ML IV SCH (08:15)
[2017-06-09] MEDS: MAGNESIUM HYDROXIDE SUSP 30 ML CUP PO SCH (09:10)
[2017-06-09] MEDS: POLYETHYLENE GLYCOL 17 GM PKG PO SCH (09:10)
[2017-06-09] MEDS: DOCUSATE SODIUM 100 MG CAP PO SCH ×2 (09:11→20:31)
[2017-06-09] MEDS: ASPIRIN 81 MG CHEW TAB PO SCH (09:11)
[2017-06-09] MEDS: CLOPIDOGREL 75 MG TAB PO SCH (09:11)
[2017-06-09] MEDS: METOPROLOL TARTRATE 25 MG TAB PO SCH ×2 (09:11→20:31)
[2017-06-09] MEDS: AMIODARONE 200 MG TAB PO SCH ×2 (09:11→20:31)
[2017-06-09] MEDS: MULTIVITAMINS/MINERALS THERAPEUTIC TAB PO SCH (09:11)
[2017-06-09] MEDS: buPROPion HCL 150 MG SUSTAINED RELEASE TAB PO SCH ×2 (09:11→20:30)
[2017-06-09] MEDS: SODIUM CHLORIDE 0.9% FLUSH 10 ML FLUSH IV FLUSH SCH ×2 (09:12→20:31)
--- NOTE | 2017-06-09 10:48 | PD.CARD.PN ---
Subjective Subjective Remarks No events overnight Chest tubes out Up to chair Objective Medications Current Medications Medications (Trade) Dose Ordered Sig/Radha Route Start Time Stop Time Status Last Admin (NS 1000 ml Inj) 1,000 ml @ 30 mls/hr Q24H IV 06/05/17 08:15 06/06/17 20:00 (Lipitor) 80 mg HS PO 06/05/17 21:00 06/08/17 22:50 (Wellbutrin Sr) 150 mg BID PO 06/05/17 21:00 06/09/17 09:11 (NS Flush) 2 ml BID IV FLUSH 06/05/17 21:00 06/09/17 09:12 (NS Flush) 2 ml UNSCH PRN IV FLUSH 06/05/17 11:30 (Pill Splitter) 1 ea UNSCH PRN OTHER 06/05/17 11:45 (Aspirin Chew) 81 mg DAILY PO 06/07/17 09:00 06/09/17 09:11 (Plavix) 75 mg DAILY PO 06/07/17 09:00 06/09/17 09:11 (Protonix) 40 mg DAILY@06 PO 06/07/17 06:00 06/09/17 06:00 (Cordarone) 200 mg Q12HR PO 06/06/17 21:00 06/09/17 09:11 (Tylenol) 650 mg Q4H PRN PO 06/06/17 12:30 (Zofran Inj) 4 mg Q6H PRN IV PUSH 06/06/17 12:30 Hydralazine HCl 10 mg 10 mg Q4H PRN IV 06/06/17 12:30 Magnesium Sulfate 2 gm/Sodium Chloride 104 ml @ 100 mls/hr UNSCH PRN IV 06/06/17 12:30 (Magnesium Sulfate Inj/NS Inj) 104 ml @ 50 mls/hr UNSCH PRN IV 06/06/17 12:30 (Colace) 100 mg BID PO 06/07/17 09:00 06/09/17 09:11 (Theragran M Tab) 1 tab DAILY PO 06/07/17 09:00 06/09/17 09:11 (Milk Of Magnesia Liq) 30 ml DAILY PO 06/07/17 09:00 06/09/17 09:10 (Miralax) 17 gm DAILY PO 06/08/17 09:00 06/09/17 09:10 (Senokot) 8.6 mg HS PO 06/07/17 21:00 06/08/17 22:50 (Fleets Enema (Adult)) 133 ml UNSCH PRN RECTAL 06/07/17 08:15 (D50w (Vial) Inj) 50 ml UNSCH PRN IV 06/07/17 08:15 (Glucagon Inj) 1 mg UNSCH PRN OTHER 06/07/17 08:15 (Oramorph Sr) 15 mg Q4HR PRN PO 06/07/17 09:00 06/07/17 18:16 (Lopressor) 25 mg BID PO 06/08/17 21:00 06/09/17 09:11 (Pill Splitter) 1 ea UNSCH PRN OTHER 06/08/17 12:15 Vital Signs / I&O Vital Signs Date Time Temp Pulse Resp B/P Pulse Ox O2 Delivery O2 Flow Rate FiO2 06/09/17 07:39 94 21 06/09/17 07:30 97.9 69 19 120/75 96 06/09/17 06:00 85 06/09/17 05:00 66 06/09/17 04:55 98.6 70 18 117/71 92 06/09/17 04:00 66 06/09/17 03:00 64 06/09/17 02:00 64 06/09/17 01:00 64 06/09/17 00:14 98.6 79 16 141/85 92 06/09/17 00:00 64 06/08/17 23:00 75 06/08/17 22:00 78 06/08/17 21:00 78 06/08/17 20:39 92 06/08/17 20:32 98.5 80 16 141/76 93 06/08/17 20:00 78 06/08/17 19:00 75 06/08/17 18:27 66 06/08/17 17:00 68 06/08/17 15:50 98.6 68 19 131/78 93 06/08/17 15:50 66 06/08/17 14:00 80 06/08/17 12:00 81 06/08/17 12:00 98.4 81 20 124/68 94 06/08/17 11:00 80 I/O 8/5/17 06/08/17 06/08/17 06/09/17 06/09/17 06/09/17 07:00 15:00 23:00 07:00 15:00 23:00 Intake Total 580 ml 480 ml 480 ml Output Total 360 ml 225 ml 1050 ml Balance 220 ml 255 ml -570 ml Intake Oral 480 ml 480 ml 480 ml IV Total 100 ml Output Urine Total 350 ml 225 ml 1050 ml Chest Tube Drainage Total 10 ml # Voids 1 # Bowel Movements 0 Physical Exam GENERAL: NAD, AAOx3 SKIN: Warm and dry. HEAD: Atraumatic. Normocephalic. EYES: Pupils equal and round. No scleral icterus. No injection or drainage. ENT: No nasal bleeding or discharge. Mucous membranes pink and moist. NECK: Trachea midline. No JVD. CARDIOVASCULAR: Regular rate and rhythm. No murmurs noted. Sternotomy with wound vac RESPIRATORY: No accessory muscle use. Clear to auscultation. Breath sounds equal bilaterally. GASTROINTESTINAL: Abdomen soft, non-tender, nondistended. Hepatic and splenic margins not palpable. MUSCULOSKELETAL: Extremities without clubbing, cyanosis, or edema. No obvious deformities. NEUROLOGICAL: No focal deficits Assessment and Plan Problem List: (1) Unstable angina (2) CAD (coronary artery disease) (3) S/P CABG x 5 (4) Tobacco abuse (5) Hyperlipemia Assessment and Plan 1) Hemodynamically stable post-operative 2) CABGx5 POD #3 MAGAÑA to LAD SVG to Diag SVG to OM2 SVG to OM3 SVG to PLB 3) Con't supportive care 4) ASA/BB/Plavix/Lipitor/Statin 5) Agree with increased BB 6) Ambulate after chest tubes removed 7) On discharge follow up with Alex Bruno DO Jun 09, 2017 10:48
[2017-06-09] MEDS: ATORVASTATIN 80 MG TAB PO SCH (20:31)
[2017-06-09] MEDS: SENNOSIDES 8.6 MG TAB PO SCH (20:31)
[2017-06-10] VITALS (27 sets, daily range): BP systolic 118–139; BP diastolic 64–78; PULSE 52–68; RESP 16–20; TEMP 97.8–98.6; O2SAT 95–99
[2017-06-10] MEDS: PANTOPRAZOLE SOD 40 MG DELAYED RELEASE TAB PO SCH (05:37)
[2017-06-10] MEDS ORDERED: POTASSIUM CHLORIDE 20 MEQ CONTROLLED RELEASE TAB PO ONE (08:45)
[2017-06-10] MEDS: POLYETHYLENE GLYCOL 17 GM PKG PO SCH (09:00)
[2017-06-10] MEDS: buPROPion HCL 150 MG SUSTAINED RELEASE TAB PO SCH ×2 (09:00→21:00)
[2017-06-10] MEDS: MAGNESIUM HYDROXIDE SUSP 30 ML CUP PO SCH (09:00)
[2017-06-10] MEDS: CLOPIDOGREL 75 MG TAB PO SCH (09:16)
[2017-06-10] MEDS: DOCUSATE SODIUM 100 MG CAP PO SCH ×2 (09:16→21:00)
[2017-06-10] MEDS: ASPIRIN 81 MG CHEW TAB PO SCH (09:16)
[2017-06-10] MEDS: AMIODARONE 200 MG TAB PO SCH ×2 (09:16→21:16)
[2017-06-10] MEDS: MULTIVITAMINS/MINERALS THERAPEUTIC TAB PO SCH (09:17)
[2017-06-10] MEDS: METOPROLOL TARTRATE 25 MG TAB PO SCH ×2 (09:17→21:16)
[2017-06-10] MEDS: SODIUM CHLORIDE 0.9% FLUSH 10 ML FLUSH IV FLUSH SCH ×2 (09:27→21:16)
[2017-06-10] MEDS ORDERED: FURO1TAB60 PO (10:45)
[2017-06-10] MEDS ORDERED: THERM PO (10:45)
[2017-06-10] MEDS ORDERED: MORP1TAB24 PO (10:45)
[2017-06-10] MEDS ORDERED: METO25TA3 PO (10:45)
[2017-06-10] MEDS ORDERED: DOCU1CAP39 PO (10:45)
[2017-06-10] MEDS ORDERED: POTA-163 PO (10:45)
[2017-06-10] MEDS ORDERED: ASPI81CH25 PO (10:45)
[2017-06-10] MEDS ORDERED: AMIO200T PO (10:45)
[2017-06-10] MEDS ORDERED: PLAV75TA29 PO (10:45)
--- NOTE | 2017-06-10 11:24 | HHI.DS ---
Discharge Summary Admission Date Jun 05, 2017 at 10:58 Discharge Date: Jun 10, 2017 Admitting Diagnosis chest pain unstable angina (1) Unstable angina Diagnosis: Principal (2) CAD (coronary artery disease) Diagnosis: Principal (3) Tobacco abuse Diagnosis: Principal (4) Hyperlipemia Diagnosis: Principal (5) S/P CABG x 5 Diagnosis: Secondary Procedures 1. Urgent Off-pump Coronary Artery Bypass Grafting x 5 with Left Internal Mammary Artery (MAGAÑA) to Left Anterior Descending (LAD), reverse saphenous vein graft to Diagonal 1, reverse saphenous vein graft to the Posterolateral branch of the Right Coronary Artery (RPLB), sequential reverse saphenous vein graft to the Obtuse Marginal 2 and Obtuse Marginal 3 branches of the Circumflex artery 2. Right Leg Endoscopic Vein Westfall 06/06/17 Brief History 66/ male with unstable angina, abnormal ECG, underwent cardiac cath 06/[address] Smyth ( Dr Holt pt ) , found to have multivessel disease, EF 45% PMH: CAD, chronic low back pain on MS IR at home , HLP, tobacco abuse, neuropathy CBC/BMP: 06/08/17 0550 06/08/17 0550 Significant Findings Laboratory Tests Test 06/08/17 05:50 White Blood Count 11.3 TH/MM3 (4.0-11.0) Red Blood Count 3.66 MIL/MM3 (4.50-5.90) Hemoglobin 11.4 GM/DL (13.0-17.0) Hematocrit 34.6 % (39.0-51.0) Neutrophils (%) (Auto) 72.2 % (16.0-70.0) Monocytes (%) (Auto) 8.1 % (0.0-8.0) Neutrophils # (Auto) 8.1 TH/MM3 (1.8-7.7) Creatinine 0.48 MG/DL (0.60-1.30) Calcium Level 7.8 MG/DL (8.5-10.1) Imaging Last Impressions Chest X-Ray 06/07/17 0500 Signed Impressions: Service Date/Time: Wednesday, June 07, 2017 04:23 - CONCLUSION: 1. Postsurgical changes as above. 2. Subsegmental atelectasis both bases. The findings are improved when compared with the prior exam. Ayo Wyatt MD Lower Extremity Ultrasound 06/05/17 0000 Signed Impressions: Service Date/Time: Monday, June 05, 2017 12:23 - CONCLUSION: 1. Venous mapping examination, as above. Frantz Rod MD Carotid Artery Ultrasound 06/05/17 0000 Signed Impressions: Service Date/Time: Monday, June 05, 2017 11:56 - CONCLUSION: 1. No hemodynamically significant flow-limiting stenosis. 2. Antegrade vertebral artery flow bilaterally. Frantz Rod MD PE at Discharge GENERAL: A&O x 3 SKIN: Warm and dry. Prevena dressing to chest , incision intact right leg HEAD: Normocephalic. EYES: No scleral icterus. No injection or drainage. NECK: Supple, trachea midline. No JVD or lymphadenopathy. CARDIOVASCULAR: Regular rate and rhythm without murmurs, gallops, or rubs. mild general edema RESPIRATORY: Breath sounds equal bilaterally. No accessory muscle use. GASTROINTESTINAL: Abdomen soft, non-tender, nondistended. MUSCULOSKELETAL: No cyanosis, or edema. BACK: Nontender without obvious deformity. No CVA tenderness. Hospital Course Surgery: 1. Urgent Off-pump Coronary Artery Bypass Grafting x 5 with Left Internal Mammary Artery (MAGAÑA) to Left Anterior Descending (LAD), reverse saphenous vein graft to Diagonal 1, reverse saphenous vein graft to the Posterolateral branch of the Right Coronary Artery (RPLB), sequential reverse saphenous vein graft to the Obtuse Marginal 2 and Obtuse Marginal 3 branches of the Circumflex artery 2. Right Leg Endoscopic Vein Westfall 06/06 3500cc crystalloid, 290cc cell saver, EBL 250cc pt extubated after surgery 06/07 pt up in chair, requesting his pain meds changed to MS IR prn pt having significant back pain ( chronic ) start low dose BB, on statin , ASA, Plavix, eval for low dose tracy when BP tolerates leave chest tubes in , will transfer to stepdown 06/08 Doing well D/C CT today Increase beta bianca Discharge planning 06/10/17 Doing well on room air stable for dc today will add Lasix 40mg x 7 days continue BB, statin , ASA plavix pt dc for rehab Pt Condition on Discharge: Good Discharge Disposition: Discharge to SNF Discharge Instructions DIET: Follow Instructions for: Heart Healthy Diet Activities you can perform: Shower Only-No Bath Activities to avoid: Lifting/Bending, Strenuous Activity, Driving Additional Activity Instructio: no lifting > 8lbs or gallon of milk Follow up Referrals: Appointment for Follow Up with Fariha Carey MD Cardiology with Sd Holt MD PCP Follow-up with Melanie Guadalupe MD New Medications: Furosemide (Lasix) 40 Mg Tab 40 MG PO DAILY edema #7 Ref 0 TAB Potassium Chloride ER (Potassium Chloride ER) 20 Meq Tab 20 MEQ PO DAILY Electrolyte Replacement #7 Ref 0 TAB Amiodarone (Amiodarone) 200 Mg Tab 200 MG PO Q12HR heart rhythm #28 TAB Aspirin (Aspirin Low Strength) 81 Mg Chew 81 MG PO DAILY Blood Clot Prevention #100 Ref 2 EA Clopidogrel (Plavix) 75 Mg Tab 75 MG PO DAILY Blood Clot Prevention #30 Ref 2 TAB Docusate Sodium (Dok) 100 Mg Cap 100 MG PO BID Constipation #60 CAP Metoprolol Tartrate (Metoprolol Tartrate) 25 Mg Tab 25 MG PO BID Blood Pressure Management #60 Ref 2 TAB Morphine ER (Morphine ER) 15 Mg Tab 15 MG PO Q6HR PRN PAIN SCALE 1 TO 10 #40 TAB Multiple Vitamins W/ Minerals (Thera M Plus) 1 Tab 1 TAB PO DAILY multi vitamin #30 Ref 2 TAB Continued Medications: Atorvastatin (Atorvastatin) 80 Mg Tab 80 MG PO HS Cholesterol Management #30 Ref 0 TAB Bupropion HCl ER 12 HR (Bupropion HCl ER 12 HR) 150 Mg Tab 150 MG PO BID #60 TAB Discontinued Medications: Aspirin (Radha Aspirin) 325 Mg Tab Isosorbide Mononitrate ER (Isosorbide Mononitrate ER) 30 Mg Cristofer 30 MG PO DAILY Prevent Chest Pain #30 Ref 0 TAB Morphine ER (Morphine ER) 15 Mg Tab 15 MG PO Q4HR PRN PAIN SCALE 1 TO 10 Ref 0 TAB Nitroglycerin SL (Nitroglycerin SL) 0.4 Mg Subl 0.4 MG SL DIRECTED ONE TABLET UNDER THE TONGUE NEEDED FOR CHEST PAIN, MAY REPEAT EVERY FIVE MINUTES FOR A TOTAL OF 3 DOSES OR CALL 911 IF NO RELIEF PRN CHEST PAIN #100 Ref 0 TAB.SL Sunshine Altamirano Jun 10, 2017 11:24
--- NOTE | 2017-06-10 14:37 | PD.CARD.PN ---
Subjective Subjective Remarks Doing well, no complaints Heart rates mostly 60s Objective Medications Current Medications Medications (Trade) Dose Ordered Sig/Radha Route Start Time Stop Time Status Last Admin (NS 1000 ml Inj) 1,000 ml @ 30 mls/hr Q24H IV 06/05/17 08:15 06/06/17 20:00 (Lipitor) 80 mg HS PO 06/05/17 21:00 06/09/17 20:31 (Wellbutrin Sr) 150 mg BID PO 06/05/17 21:00 06/09/17 09:11 (NS Flush) 2 ml BID IV FLUSH 06/05/17 21:00 06/10/17 09:27 (NS Flush) 2 ml UNSCH PRN IV FLUSH 06/05/17 11:30 (Pill Splitter) 1 ea UNSCH PRN OTHER 06/05/17 11:45 (Aspirin Chew) 81 mg DAILY PO 06/07/17 09:00 06/10/17 09:16 (Plavix) 75 mg DAILY PO 06/07/17 09:00 06/10/17 09:16 (Protonix) 40 mg DAILY@06 PO 06/07/17 06:00 06/10/17 05:37 (Cordarone) 200 mg Q12HR PO 06/06/17 21:00 06/10/17 09:16 (Tylenol) 650 mg Q4H PRN PO 06/06/17 12:30 (Zofran Inj) 4 mg Q6H PRN IV PUSH 06/06/17 12:30 Hydralazine HCl 10 mg 10 mg Q4H PRN IV 06/06/17 12:30 Magnesium Sulfate 2 gm/Sodium Chloride 104 ml @ 100 mls/hr UNSCH PRN IV 06/06/17 12:30 (Magnesium Sulfate Inj/NS Inj) 104 ml @ 50 mls/hr UNSCH PRN IV 06/06/17 12:30 (Colace) 100 mg BID PO 06/07/17 09:00 06/10/17 09:16 (Theragran M Tab) 1 tab DAILY PO 06/07/17 09:00 06/10/17 09:17 (Milk Of Magnesia Liq) 30 ml DAILY PO 06/07/17 09:00 06/09/17 09:10 (Miralax) 17 gm DAILY PO 06/08/17 09:00 06/09/17 09:10 (Senokot) 8.6 mg HS PO 06/07/17 21:00 06/09/17 20:31 (Fleets Enema (Adult)) 133 ml UNSCH PRN RECTAL 06/07/17 08:15 (D50w (Vial) Inj) 50 ml UNSCH PRN IV 06/07/17 08:15 (Glucagon Inj) 1 mg UNSCH PRN OTHER 06/07/17 08:15 (Oramorph Sr) 15 mg Q4HR PRN PO 06/07/17 09:00 06/07/17 18:16 (Lopressor) 25 mg BID PO 06/08/17 21:00 06/10/17 09:17 (Pill Splitter) 1 ea UNSCH PRN OTHER 06/08/17 12:15 Vital Signs / I&O Vital Signs Date Time Temp Pulse Resp B/P Pulse Ox O2 Delivery O2 Flow Rate FiO2 06/10/17 12:00 58 06/10/17 11:00 54 06/10/17 11:00 97.8 57 16 122/70 96 06/10/17 10:00 52 06/10/17 09:00 60 06/10/17 08:00 56 06/10/17 07:00 98.0 60 16 129/74 97 06/10/17 07:00 54 06/10/17 06:29 54 06/10/17 05:04 65 06/10/17 04:00 62 06/10/17 03:59 98.3 60 134/76 99 06/10/17 03:00 61 06/10/17 02:00 68 06/10/17 01:00 58 06/10/17 00:31 98.3 59 118/64 95 06/10/17 00:00 58 06/09/17 23:00 59 06/09/17 22:00 66 06/09/17 21:00 70 06/09/17 20:00 64 06/09/17 19:00 97.8 71 131/73 94 06/09/17 19:00 64 06/09/17 18:30 63 06/09/17 17:00 62 06/09/17 16:00 70 06/09/17 15:40 69 06/09/17 15:40 97.8 71 20 131/74 97 I/O 06/09/17 06/09/17 06/09/17 06/10/17 06/10/17 06/10/17 07:00 15:00 23:00 07:00 15:00 23:00 Intake Total 480 ml 480 ml 240 ml Output Total 1050 ml 150 ml 1150 ml Balance -570 ml 330 ml -910 ml Intake Oral 480 ml 480 ml 240 ml Output Urine Total 1050 ml 150 ml 1150 ml # Voids 2 # Bowel Movements 0 1 Physical Exam GENERAL: NAD, AAOx3 SKIN: Warm and dry. HEAD: Atraumatic. Normocephalic. EYES: Pupils equal and round. No scleral icterus. No injection or drainage. ENT: No nasal bleeding or discharge. Mucous membranes pink and moist. NECK: Trachea midline. No JVD. CARDIOVASCULAR: Regular rate and rhythm. No murmurs noted. Sternotomy with wound vac RESPIRATORY: No accessory muscle use. Clear to auscultation. Breath sounds equal bilaterally. GASTROINTESTINAL: Abdomen soft, non-tender, nondistended. Hepatic and splenic margins not palpable. MUSCULOSKELETAL: Extremities without clubbing, cyanosis, or edema. No obvious deformities. NEUROLOGICAL: No focal deficits Assessment and Plan Problem List: (1) Unstable angina (2) CAD (coronary artery disease) (3) S/P CABG x 5 (4) Tobacco abuse (5) Hyperlipemia Assessment and Plan 1) Hemodynamically stable post-operative 2) CABGx5 POD #4 MAGAÑA to LAD SVG to Diag SVG to OM2 SVG to OM3 SVG to PLB 3) Con't supportive care 4) ASA/BB/Plavix/Lipitor/Statin 5) Heart rates around 60, no symptoms 6) Cardiovascularly stable for discharge 7) On discharge follow up with Alex Bruno DO Jun 10, 2017 14:37
[2017-06-10] MEDS: SENNOSIDES 8.6 MG TAB PO SCH (21:00)
[2017-06-10] MEDS: ATORVASTATIN 80 MG TAB PO SCH (21:16)
[2017-06-11] VITALS (10 sets, daily range): BP systolic 130–141; BP diastolic 76–82; PULSE 50–59; RESP 16; TEMP 97.8; O2SAT 97–99
[2017-06-11] MEDS: PANTOPRAZOLE SOD 40 MG DELAYED RELEASE TAB PO SCH (06:23)
[2017-06-11] MEDS ORDERED: POTASSIUM CHLORIDE 10 MEQ CONTROLLED RELEASE TAB PO ONE (08:45)
[2017-06-11] MEDS ORDERED: FUROSEMIDE 40 MG/4 ML VIAL IV PUSH ONE (08:45)
[2017-06-11] MEDS: MULTIVITAMINS/MINERALS THERAPEUTIC TAB PO SCH (08:55)
[2017-06-11] MEDS: DOCUSATE SODIUM 100 MG CAP PO SCH (08:57)
[2017-06-11] MEDS: ASPIRIN 81 MG CHEW TAB PO SCH (08:58)
[2017-06-11] MEDS: CLOPIDOGREL 75 MG TAB PO SCH (08:58)
[2017-06-11] MEDS: METOPROLOL TARTRATE 25 MG TAB PO SCH (08:58)
[2017-06-11] MEDS: MAGNESIUM HYDROXIDE SUSP 30 ML CUP PO SCH (09:00)
[2017-06-11] MEDS: buPROPion HCL 150 MG SUSTAINED RELEASE TAB PO SCH (09:00)
[2017-06-11] MEDS: SODIUM CHLORIDE 0.9% FLUSH 10 ML FLUSH IV FLUSH SCH (09:00)
[2017-06-11] MEDS: POLYETHYLENE GLYCOL 17 GM PKG PO SCH (09:00)
[2017-06-11] MEDS ORDERED: POTASSIUM CHLORIDE 10 MEQ CAP PO ONE (11:00)
--- NOTE | 2017-06-12 09:47 | RSPPFT ---
DATE OF PROCEDURE: 06/05/17 COMMENTS: Spirometry with FVC of 2.7, FEV1 of 2.1, FEV1/FVC ratio at 77%. Post-bronchodilator study was not performed. IMPRESSION: 1. Decreased flow rates. 2. No gross obstruction. 3. Possible restriction. 4. If clinically warranted, lung volumes may be helpful.
== END 2017-06-11 10:25 | DRG 234 ==
LOC: HCAT 07:47 → HDIC 07:48 → HCIN 10:58 → HCAT 18:06 → HCIS 06-06 08:40 → HCVR 06-06 12:59 → HCIN 06-07 10:43
PROVIDERS: ADMIT Nuclear Medicine Nuclear Cardiology; ATTEND Nuclear Medicine Nuclear Cardiology
PROC: B2111ZZ Fluoroscopy of Multiple Coronary Arteries using Low Osmolar Contrast (ICD-10-PCS; 2017-06-05)
PROC: 4A023N7 Measurement of Cardiac Sampling and Pressure, Left Heart, Percutaneous Approach (ICD-10-PCS; 2017-06-05)
PROC: 02100Z9 Bypass Coronary Artery, One Artery from Left Internal Mammary, Open Approach (ICD-10-PCS; 2017-06-06)
PROC: 06BP4ZZ Excision of Right Saphenous Vein, Percutaneous Endoscopic Approach (ICD-10-PCS; 2017-06-06)
PROC: 021309W Bypass Coronary Artery, Four or More Arteries from Aorta with Autologous Venous Tissue, Open Approach (ICD-10-PCS; principal; 2017-06-06 07:09)
DX: I25.110 Atherosclerotic heart disease of native coronary artery with unstable angina pectoris (principal); G62.9 Polyneuropathy, unspecified; E78.5 Hyperlipidemia, unspecified; G89.4 Chronic pain syndrome; F17.200 Nicotine dependence, unspecified, uncomplicated
CPT/HCPCS: 36430; 71010; 76937; 80048; 81001; 82948; 83036; 83735; 85025; 85027; 85610; 85730; 86850; 86900; 86901; 86920; 87641; 93005; 93458; 93880; 93970; 93998; 94002; 94010; 94150; 94640; 94664; 94667; 94668; C1768; C1769; C1893; C9248; J0131; J0690; J1644; J1885; J1940; J2175; J2250; J2270; J2440; J2720; J3010; J3370; J3475; J3480; J7030; J7050; J7120; P9016; Q9967

== ENCOUNTER 2017-06-27 00:59 | Observation (INO) | payer OTHER ==
[2017-06-27] VITALS (17 sets, daily range): BP systolic 100–168; BP diastolic 52–82; PULSE 48–89; RESP 14–20; TEMP 97.6–98.5; O2SAT 97–100
[~2017-06-27] VITALS: Ht 180.3 cm; Wt 85.0 kg
[~2017-06-27 00:59] MED LIST: ASPI81CH25 PO; ATOR1TAB18 PO; BUPR150T5 PO; DOCU1CAP39 PO; FURO1TAB60 PO; METO25TA3 PO; MORP1TAB24 PO; PLAV75TA29 PO; POTA-163 PO; THERM PO
[2017-06-27] MEDS ORDERED: FURO20TA PO (01:21)
[2017-06-27] MEDS ORDERED: METO25TA3 PO (01:21)
[2017-06-27] MEDS ORDERED: SODIUM CHLORIDE 0.9% FLUSH 10 ML FLUSH IVF PRN (01:30)
--- NOTE | 2017-06-27 01:35 | PD ---
HPI Chief Complaint: Chest Pain Time Seen by Provider: 01:22 Travel History International Travel<30 days: No Contact w/Intl Traveler<30days: No Traveled to known affect area: No History of Present Illness HPI The patient is a 66-year-old male who presents to the emergency department for chest pain. The patient recently underwent CABG by Dr. Carey following a cardiac catheterization by Dr. Smyth at the beginning of June. The patient states he is feeling well and was subsequently discharged home. The patient developed pain earlier tonight at approximately 11 PM which was substernal, dull and achy, nonradiating, and associated with mild shortness of breath and nausea. The patient states the pain lasted one and a half hours and eventually resolved on its own. He denies any current chest pain, shortness breath, or nausea. The patient's primary physician is Dr. Bergeron. The patient denies any fever, chills, or sweats. Symptoms are mild to moderate, no known alleviating or exacerbating factors. PFSH Past Medical History Arthritis: Yes Cardiovascular Problems: Yes (5 vessel CABG 3wks ago) High Cholesterol: Yes Past Surgical History Narrative Surgical CABG Social History Tobacco Use: No Allergies-Medications (Allergen,Severity, Reaction): Coded Allergies: No Known Allergies (Unverified , 06/05/17) Reported Meds & Prescriptions Reported Meds & Active Scripts Active Morphine ER (Morphine Sulfate) 15 Mg Tab 15 Mg PO Q6HR PRN Potassium Chloride ER (Potassium Chloride) 20 Meq Tab 20 Meq PO DAILY Thera M Plus (Multivitamins/Minerals Therapeutic) 1 Tab 1 Tab PO DAILY Plavix (Clopidogrel Bisulfate) 75 Mg Tab 75 Mg PO DAILY Aspirin Low Strength (Aspirin) 81 Mg Chew 81 Mg PO DAILY Reported Metoprolol Tartrate 25 Mg Tab 12.5 Mg PO BID Furosemide 20 Mg Tab 20 Mg PO DAILY Atorvastatin (Atorvastatin Calcium) 80 Mg Tab 80 Mg PO HS Review of Systems Except as stated in HPI: all other systems reviewed are Neg General / Constitutional: No: Fever HENT: No: Lightheadedness Cardiovascular: Positive: Chest Pain or Discomfort, Diaphoresis Respiratory: Positive: Shortness of Breath Gastrointestinal: Positive: Nausea, No: Vomiting Musculoskeletal: No: Edema Neurologic: No: Dizziness Physical Exam Narrative GENERAL: Awake, alert, pleasant 66-year-old male who appears his stated age and is in no acute respiratory distress. SKIN: Focused skin assessment warm/dry. HEAD: Atraumatic. Normocephalic. EYES: Pupils equal and round. No scleral icterus. No injection or drainage. ENT: No nasal bleeding or discharge. Mucous membranes pink and moist. NECK: Trachea midline. No JVD. CARDIOVASCULAR: Regular, bradycardic with a heart rate in the 50s. Midline surgical scar noted without dehiscence. Minimal tenderness to palpation. RESPIRATORY: No accessory muscle use. Clear to auscultation. Breath sounds equal bilaterally. GASTROINTESTINAL: Abdomen soft, non-tender, nondistended. No rebound tenderness. MUSCULOSKELETAL: No obvious deformities. No clubbing. No cyanosis. No edema. NEUROLOGICAL: Awake and alert. No obvious cranial nerve deficits. Motor grossly within normal limits. Normal speech. PSYCHIATRIC: Appropriate mood and affect; insight and judgment normal. Data Data Last Documented VS Vital Signs Date Time Temp Pulse Resp B/P (MAP) Pulse Ox O2 Delivery O2 Flow Rate FiO2 06/27/17 03:00 50 15 149/75 (99) 100 Nasal Cannula 2.00 06/27/17 01:07 98.0 Orders Orders Electrocardiogram (06/27/17 01:29) Ckmb (Isoenzyme) Profile (06/27/17 01:29) Complete Blood Count With Diff (06/27/17:29) Comprehensive Metabolic Panel (06/27/17:29) Magnesium (Mg) (06/27/17:29) Prothrombin Time / Inr (Pt) (06/27/17:29) Act Partial Throm Time (Ptt) (06/27/17:29) Troponin I (06/27/17:29) Lipase (06/27/17:29) Chest, Single Ap (06/27/17:29) Ecg Monitoring (06/27/17:29) Bilateral Bp Monitoring (06/27/17:29) Iv Access Insert/Monitor (06/27/17:29) Oximetry (06/27/17:29) Oxygen Administration (06/27/17:29) Sodium Chloride 0.9% Flush (Ns Flush) (06/27/17 01:30) CKMB (06/27/17 02:35) CKMB% (06/27/17 02:35) Admit Order (Ed Use Only) (06/27/17 03:34) Consult Cardiothoracic Surgery (06/27/17 ) Labs Laboratory Tests Test 06/27/17 02:35 06/27/17 02:48 Blood Urea Nitrogen 13 MG/DL Creatinine 0.60 MG/DL Random Glucose 99 MG/DL Total Protein 6.3 GM/DL Albumin 2.7 GM/DL Calcium Level 8.5 MG/DL Magnesium Level 2.2 MG/DL Alkaline Phosphatase 167 U/L Aspartate Amino Transf (AST/SGOT) 41 U/L Alanine Aminotransferase (ALT/SGPT) 56 U/L Total Bilirubin 0.4 MG/DL Sodium Level 143 MEQ/L Potassium Level 3.9 MEQ/L Chloride Level 108 MEQ/L Carbon Dioxide Level 27.8 MEQ/L Anion Gap 7 MEQ/L Estimat Glomerular Filtration Rate 134 ML/MIN Total Creatine Kinase 314 U/L Creatine Kinase MB 4.0 NG/ML Creatine Kinase MB % 1.3 % Troponin I 0.03 NG/ML Lipase 180 U/L White Blood Count 8.1 TH/MM3 Red Blood Count 3.91 MIL/MM3 Hemoglobin 12.1 GM/DL Hematocrit 36.7 % Mean Corpuscular Volume 93.9 FL Mean Corpuscular Hemoglobin 31.0 PG Mean Corpuscular Hemoglobin Concent 33.1 % Red Cell Distribution Width 14.1 % Platelet Count 295 TH/MM3 Mean Platelet Volume 7.6 FL Neutrophils (%) (Auto) 47.2 % Lymphocytes (%) (Auto) 33.0 % Monocytes (%) (Auto) 7.6 % Eosinophils (%) (Auto) 9.4 % Basophils (%) (Auto) 2.8 % Neutrophils # (Auto) 3.8 TH/MM3 Lymphocytes # (Auto) 2.7 TH/MM3 Monocytes # (Auto) 0.6 TH/MM3 Eosinophils # (Auto) 0.8 TH/MM3 Basophils # (Auto) 0.2 TH/MM3 CBC Comment DIFF FINAL Differential Comment Prothrombin Time 10.1 SEC Prothromb Time International Ratio 0.9 RATIO Activated Partial Thromboplast Time 26.1 SEC MDM Medical Decision Making Medical Screen Exam Complete: Yes Emergency Medical Condition: Yes Medical Record Reviewed: Yes Interpretation(s) EKG reveals sinus bradycardia with a heart rate of 58. Q wave noted in lead 3. Laboratory Tests Test 06/27/17 02:35 06/27/17 02:48 Blood Urea Nitrogen 13 MG/DL Creatinine 0.60 MG/DL Random Glucose 99 MG/DL Total Protein 6.3 GM/DL Albumin 2.7 GM/DL Calcium Level 8.5 MG/DL Magnesium Level 2.2 MG/DL Alkaline Phosphatase 167 U/L Aspartate Amino Transf (AST/SGOT) 41 U/L Alanine Aminotransferase (ALT/SGPT) 56 U/L Total Bilirubin 0.4 MG/DL Sodium Level 143 MEQ/L Potassium Level 3.9 MEQ/L Chloride Level 108 MEQ/L Carbon Dioxide Level 27.8 MEQ/L Anion Gap 7 MEQ/L Estimat Glomerular Filtration Rate 134 ML/MIN Total Creatine Kinase 314 U/L Creatine Kinase MB 4.0 NG/ML Creatine Kinase MB % 1.3 % Troponin I 0.03 NG/ML Lipase 180 U/L White Blood Count 8.1 TH/MM3 Red Blood Count 3.91 MIL/MM3 Hemoglobin 12.1 GM/DL Hematocrit 36.7 % Mean Corpuscular Volume 93.9 FL Mean Corpuscular Hemoglobin 31.0 PG Mean Corpuscular Hemoglobin Concent 33.1 % Red Cell Distribution Width 14.1 % Platelet Count 295 TH/MM3 Mean Platelet Volume 7.6 FL Neutrophils (%) (Auto) 47.2 % Lymphocytes (%) (Auto) 33.0 % Monocytes (%) (Auto) 7.6 % Eosinophils (%) (Auto) 9.4 % Basophils (%) (Auto) 2.8 % Neutrophils # (Auto) 3.8 TH/MM3 Lymphocytes # (Auto) 2.7 TH/MM3 Monocytes # (Auto) 0.6 TH/MM3 Eosinophils # (Auto) 0.8 TH/MM3 Basophils # (Auto) 0.2 TH/MM3 CBC Comment DIFF FINAL Differential Comment Last Impressions Chest X-Ray 06/27/17 0129 Signed Impressions: Service Date/Time: June 01:43 - CONCLUSION: 1. Cardiomegaly status post median sternotomy. No acute findings. Isaiah Rodriguez MD Differential Diagnosis Differential diagnosis includes acute coronary syndrome, Arielle syndrome, pericardial effusion, pleural effusion, postoperative pain, musculoskeletal pain , surgical dehiscence, pancreatitis, gastritis, GERD, esophageal spasm. Narrative Course IV was established, labs are drawn and sent, and the patient was placed on cardiac telemetry monitoring and continuous pulse oximetry monitoring. EKG was ordered and interpreted. Chest x-ray was obtained. The patient took aspirin prior to arrival, is now asymptomatic. The patient's chest x-rays unremarkable. CPK and CK-MB are slightly elevated, troponin is 0.03. The patient is reevaluated at 3:20 AM, he is asymptomatic. I tried to call the patient's cardiothoracic surgeon, Dr. Carey, however, the call center stated that another cardiothoracic surgeon, Dr. Lau would take the call. Therefore , the patient will be 23 hour observation until the morning so the patient can be evaluated by Dr. Carey and discharged home if appropriate. The patient has [employer], [facility] Physician Communication Physician Communication [facility]. I discussed the patient with Dr. Regalado who agrees with 23 hour observation. Diagnosis Primary Impression: Chest pain Qualified Codes: R07.9 - Chest pain, unspecified Additional Impression: S/P CABG x 5 Admitting Information Admitting Physician Requests: Observation Condition: Stable Terry Spivey MD Jun 27, 2017 01:35
--- NOTE | 2017-06-27 01:53 | RADRPT ---
EXAM DATE/TIME: 06/27/2017 01:43 [facility] COMPARISON: CHEST SINGLE AP, June 07, 2017, 4:23. INDICATIONS : Chest pain. MEDICAL HISTORY : None. SURGICAL HISTORY : CABG. ENCOUNTER: Initial ACUITY: 1 day PAIN SCORE: 4/10 LOCATION: Left chest FINDINGS: A single view of the chest demonstrates cardiomegaly. Previous median sternotomy. No effusion or pneu mothorax. CONCLUSION: 1. Cardiomegaly status post median sternotomy. No acute findings. Isaiah Rodriguez MD on June 27, 2017 at 1:51 Board Certified Radiologist. This report was verified electronically.
[2017-06-27 03:03] LABS: ALKALINE PHOSPHATASE 167 U/L (45-117); ALT (GPT) 56 U/L (12-78); ANION GAP 7 MEQ/L (5-15); AST (GOT) 41 U/L (15-37); BICARBONATE 27.8 MEQ/L (21.0-32.0); BLOOD UREA NITROGEN 13 MG/DL (7-18); CHLORIDE 108 MEQ/L (98-107); CREATINE KINASE 314 U/L (39-308); GLOMERULAR FILTRATION RATE 134 ML/MIN (>89); MAGNESIUM 2.2 MG/DL (1.5-2.5); POTASSIUM 3.9 MEQ/L (3.5-5.1); SODIUM (NA) 143 MEQ/L (136-145); TOTAL BILIRUBIN ADULT 0.4 MG/DL (0.2-1.0)
[2017-06-27 03:13] LABS: AUTOMATED NEUTROPHIL # 3.8 TH/MM3 (1.8-7.7); BASOPHIL # 0.2 TH/MM3 (0-0.2); BASOPHIL % 2.8 % (0.0-2.0); EOSINOPHIL # 0.8 TH/MM3 (0-0.4); EOSINOPHIL % 9.4 % (0.0-4.0); HEMATOCRIT 36.7 % (39.0-51.0); HEMO FLAGS DIFF FINAL; LYMPHOCYTE # 2.7 TH/MM3 (1.0-4.8); MEAN CELL VOLUME 93.9 FL (80.0-100.0); MEAN CORPUSCULAR HGB CONC 33.1 % (32.0-36.0); MONO % 7.6 % (0.0-8.0); NEUT % 47.2 % (16.0-70.0); PLATELET COUNT 295 TH/MM3 (150-450); RED BLOOD COUNT 3.91 MIL/MM3 (4.50-5.90); RED CELL DISTRIBUTION WIDTH 14.1 % (11.6-17.2); WHITE BLOOD COUNT 8.1 TH/MM3 (4.0-11.0)
[2017-06-27] MEDS ORDERED: IOHEXOL 350 MG/ML 100 ML BTL (for Cath Lab) OTHER ONE (03:38)
[2017-06-27 03:40] LABS: APTT (PATIENT) 26.1 SEC (24.3-30.1); INTERNATIONAL NORMALIZED RATIO 0.9 RATIO; PROTHROMBIN TIME - PATIENT 10.1 SEC (9.8-11.6)
[2017-06-27] MEDS ORDERED: SODIUM CHLORIDE 0.9% FLUSH 10 ML FLUSH IV FLUSH PRN (03:45)
[2017-06-27] MEDS ORDERED: NALOXONE HCL 0.4 MG/ML AMP IV PRN (03:45)
--- NOTE | 2017-06-27 08:20 | EKG ---
Date Performed: 06/27/2017 Time Performed: 01:09:08 PTAGE: 66 years EKG: SINUS BRADYCARDIA BORDERLINE LEFT AXIS DEVIATION BORDERLINE ECG PREVIOUS TRACING : 06/07/2017 04.53 No significant change from previous tracing noted. DOCTOR: Spencer Cole Interpretating Date/Time 06/27/2017 08:19:07
[2017-06-27] MEDS ORDERED: PILL SPLITTER OTHER PRN (09:30)
[2017-06-27] MEDS ORDERED: CLOPIDOGREL 75 MG TAB PO SCH (09:30)
[2017-06-27] MEDS ORDERED: ASPIRIN 81 MG CHEW TAB PO SCH (09:30)
[2017-06-27] MEDS: SODIUM CHLORIDE 0.9% FLUSH 10 ML FLUSH IV FLUSH SCH ×2 (10:15→20:24)
[2017-06-27] MEDS: METOPROLOL TARTRATE 25 MG TAB PO SCH ×2 (10:16→20:25)
--- NOTE | 2017-06-27 10:20 | HHI.HP ---
[facility] Service [facility] Primary Care Physician Francis Bergeron MD Admission Diagnosis chest pain status post CABG Diagnoses: Chief Complaint: Chest pain Travel History International Travel<30 Days: No Contact w/Intl Traveler <30 Da: No Traveled to Known Affected Are: No History of Present Illness Written by Ghassan Hays, acting as scribe for Dr. Childers on 06/27/17 at 10:11. 66-year-old male with a past medical history of CAD and recent CABG who presented for chest pain. The patient was recently discharged on 06/10 after having CABG done with Dr. Carey on 06/06. The patient has been doing well postoperatively until last night. Patient states he went to bed around 9:00. He woke up around 11 with chest pain. He states the pain didn't go away after about an hour or so he wanted to be careful so he came to the ED for evaluation. He states the pain spontaneously resolved around 1 AM. The patient 's locates the pain in the upper center portion of his chest. He did have a mild pressure with sensation with it. He had associated nausea and shortness of breath. He hasn't had any more symptoms since the pain resolved last night and currently feels well. The patient denies any strenuous activity. He states he's been compliant with his medications. Review of Systems Except as stated in HPI: all other systems reviewed are Neg Past Family Social History Past Medical History Coronary artery disease Hyperlipidemia Past Surgical History CABG Spine surgeries Reported Medications Reported Meds & Active Scripts Active Morphine ER (Morphine Sulfate) 15 Mg Tab 15 Mg PO Q6HR PRN Potassium Chloride ER (Potassium Chloride) 20 Meq Tab 20 Meq PO DAILY Thera M Plus (Multivitamins/Minerals Therapeutic) 1 Tab 1 Tab PO DAILY Plavix (Clopidogrel Bisulfate) 75 Mg Tab 75 Mg PO DAILY Aspirin Low Strength (Aspirin) 81 Mg Chew 81 Mg PO DAILY Reported Metoprolol Tartrate 25 Mg Tab 12.5 Mg PO BID Furosemide 20 Mg Tab 20 Mg PO DAILY Atorvastatin (Atorvastatin Calcium) 80 Mg Tab 80 Mg PO HS Allergies: Coded Allergies: No Known Allergies (Unverified , 06/05/17) Active Ordered Medications Current Medications Medications (Trade) Dose Ordered Sig/Radha Route Start Time Stop Time Status Last Admin (NS Flush) 2 ml UNSCH PRN IV FLUSH 06/27/17 03:45 (NS Flush) 2 ml BID IV FLUSH 06/27/17 09:00 06/27/17 10:15 (Narcan Inj) 0.4 mg UNSCH PRN IV 06/27/17 03:45 (Aspirin Chew) 81 mg DAILY PO 06/27/17 09:30 06/27/17 10:16 (Lipitor) 80 mg HS PO 06/27/17 21:00 (Plavix) 75 mg DAILY PO 06/27/17 09:30 06/27/17 10:16 (Lopressor) 12.5 mg BID PO 06/27/17 09:30 06/27/17 10:16 (Pill Splitter) 1 ea UNSCH PRN OTHER 06/27/17 09:30 Family History Denies any family history of heart disease Social History Smoked a few packs a day for his "whole life", but has not smoked in 23 days Seldom alcohol use Denies any drug use Physical Exam Vital Signs Vital Signs Date Time Temp Pulse Resp B/P (MAP) Pulse Ox O2 Delivery O2 Flow Rate FiO2 06/27/17 07:21 98.1 57 18 123/69 (87) 99 06/27/17 05:04 97.6 55 18 136/66 (89) 100 06/27/17 05:00 89 06/27/17 04:20 06/27/17 04:00 48 14 135/66 (89) 99 Nasal Cannula 2.00 06/27/17 03:00 50 15 149/75 (99) 100 Nasal Cannula 2.00 06/27/17 02:30 50 14 133/69 (90) 100 Nasal Cannula 2.00 06/27/17 02:00 48 14 141/70 (93) 99 Nasal Cannula 2.00 06/27/17 01:34 99 Nasal Cannula 2.00 06/27/17 01:34 52 15 128/58 (81) 99 Nasal Cannula 2.00 06/27/17 01:30 52 18 128/58 (81) 99 Nasal Cannula 2.00 06/27/17 01:25 50 99 Nasal Cannula 2.00 8/24/17 01:22 50 17 149/70 (96) 99 Nasal Cannula 2.00 06/27/17 01:07 98.0 58 20 168/82 (110) 98 Physical Exam GENERAL: Well-developed well-nourished. In no acute distress. SKIN: Warm and dry. Well-healed midline sternotomy incision HEENT: Normocephalic. Pupils equal and round. Mucous membranes pink and moist. CARDIOVASCULAR: Regular rate and rhythm. No murmur appreciated. No chest wall TTP. RESPIRATORY: No accessory muscle use. Clear to auscultation. Breath sounds equal bilaterally. GASTROINTESTINAL: Abdomen soft, non-tender, nondistended. Bowel sounds x4. MUSCULOSKELETAL: No obvious deformities. No clubbing or cyanosis. No edema. NEUROLOGICAL: Awake and alert. No focal neurological deficits. Moves upper and lower extremities spontaneously. Normal speech. PSYCHIATRIC: Appropriate mood and affect; insight and judgment normal. Laboratory Laboratory Tests Test 06/27/17 02:35 06/27/17 02:48 06/27/17 09:19 Blood Urea Nitrogen 13 Creatinine 0.60 Random Glucose 99 Total Protein 6.3 Albumin 2.7 Calcium Level 8.5 Magnesium Level 2.2 Alkaline Phosphatase 167 Aspartate Amino Transf (AST/SGOT) 41 Alanine Aminotransferase (ALT/SGPT) 56 Total Bilirubin 0.4 Sodium Level 143 Potassium Level 3.9 Chloride Level 108 Carbon Dioxide Level 27.8 Anion Gap 7 Estimat Glomerular Filtration Rate 134 Total Creatine Kinase 314 Creatine Kinase MB 4.0 Creatine Kinase MB % 1.3 Troponin I 0.03 Lipase 180 White Blood Count 8.1 Red Blood Count 3.91 Hemoglobin 12.1 Hematocrit 36.7 Mean Corpuscular Volume 93.9 Mean Corpuscular Hemoglobin 31.0 Mean Corpuscular Hemoglobin Concent 33.1 Red Cell Distribution Width 14.1 Platelet Count 295 Mean Platelet Volume 7.6 Neutrophils (%) (Auto) 47.2 Lymphocytes (%) (Auto) 33.0 Monocytes (%) (Auto) 7.6 Eosinophils (%) (Auto) 9.4 Basophils (%) (Auto) 2.8 Neutrophils # (Auto) 3.8 Lymphocytes # (Auto) 2.7 Monocytes # (Auto) 0.6 Eosinophils # (Auto) 0.8 Basophils # (Auto) 0.2 CBC Comment DIFF FINAL Differential Comment Prothrombin Time 10.1 Prothromb Time International Ratio 0.9 Activated Partial Thromboplast Time 26.1 Result Diagram: 06/27/17 0248 06/27/17 0235 Imaging Last Impressions Chest X-Ray 06/27/17 0129 Signed Impressions: Service Date/Time: June 01:43 - CONCLUSION: 1. Cardiomegaly status post median sternotomy. No acute findings. MD Jenna Brown VTE Risk Assessment Caprini VTE Risk Assessment: Mod/High Risk (score >= 2) Caprini Risk Assessment Model Point Value = 1 Point Value = 2 Point Value = 3 Point Value = 5 Age 41-60 Minor surgery BMI > 25 kg/m2 Swollen legs Varicose veins or History of unexplained or recurrent spontaneous Oral contraceptives or hormone replacement Sepsis (< 1 month) Serious lung disease, including pneumonia (< 1 month) Abnormal pulmonary function Acute myocardial infarction Congestive heart failure (< 1 month) History of inflammatory bowel disease Medical patient at bed rest Age 61-74 Arthroscopic surgery Major open surgery (> 45 min) Laparoscopic surgery (> 45 min) Malignancy Confined to bed (> 72 hours) Immobilizing plaster cast Central venous access Age >= 75 History of VTE Family history of VTE Factor V Leiden Prothrombin [id number] Lupus anticoagulant Anticardiolipin antibodies Elevated serum homocysteine Heparin-induced thrombocytopenia Other congenital or acquired thrombophilia Stroke (< 1 month) Elective arthroplasty Hip, pelvis, or leg fracture Acute spinal cord injury (< 1 month) Prophylaxis Regimen Total Risk Factor Score Risk Level Prophylaxis Regimen 0-1 Low Early ambulation 2 Moderate Order ONE of the following: *Sequential Compression Device (SCD) *Heparin 5000 units SQ BID 3-4 Higher Order ONE of the following medications: *Heparin 5000 units SQ TID *Enoxaparin/Lovenox 40 mg SQ daily (WT < 150 kg, CrCl > 30 mL/min) *Enoxaparin/Lovenox 30 mg SQ daily (WT < 150 kg, CrCl > 10-29 mL/min) *Enoxaparin/Lovenox 30 mg SQ BID (WT < 150 kg, CrCl > 30 mL/min) AND/OR *Sequential Compression Device (SCD) 5 or more Highest Order ONE of the following medications: *Heparin 5000 units SQ TID (Preferred with Epidurals) *Enoxaparin/Lovenox 40 mg SQ daily (WT < 150 kg, CrCl > 30 mL/min) *Enoxaparin/Lovenox 30 mg SQ daily (WT < 150 kg, CrCl > 10-29 mL/min) *Enoxaparin/Lovenox 30 mg SQ BID (WT < 150 kg, CrCl > 30 mL/min) AND *Sequential Compression Device (SCD) Assessment and Plan Assessment and Plan 66-year-old male with a past medical history of CAD and recent CABG who presented for chest pain Chest pain with history of CAD s/p recent CABG: Symptoms lasted 2-3 hours and spontaneously resolved. Reviewed: Troponin with mild elevation, 0.03, 0.11, third set pending. EKG with no acute ischemic changes and no significant change from previous. -Continue to trend cardiac enzymes -Consult patient's cardiothoracic surgeon and community specialist -Continue aspirin, Plavix, beta bianca, statin History of tobacco abuse: Encouraged patient to continue cessation. States he quit 23 days ago. DVT prophylaxis: SCDs This note was transcribed by scribjulissa [Saúl Ferrell]. I, Dr. Alexandre Childers personally performed the history, physical exam, and medical decision making; and confirmed the accuracy of the information in the transcribed note. Authenticated by Dr. Alexandre Childers on 06/27/17 at 1012. Discussed Condition With Patient Ghassan Hays Jun 27, 2017 10:20 Alexandre Childers MD Jun 27, 2017 11:42
--- NOTE | 2017-06-27 11:03 | EKG ---
Date Performed: 06/27/2017 Time Performed: 08:37:17 PTAGE: 66 years EKG: SINUS BRADYCARDIA BORDERLINE LEFT AXIS DEVIATION BORDERLINE ECG PREVIOUS TRACING : 06/27/2017 01.09 No significant change from previous tracing noted. DOCTOR: Spencer Cole Interpretating Date/Time 06/27/2017 11:02:28
--- NOTE | 2017-06-27 13:25 | MB ---
cc: ALEX CORREA DO DATE OF CONSULTATION June 27, 2017 REASON FOR CONSULTATION Chest pain, elevated troponin. HISTORY OF PRESENT ILLNESS Bryson Quintana is a pleasant 66-year-old male who sees my partner Dr. Holt in the office, who presented to [facility] on June 27, 2017, due to chest pain. He recently underwent coronary artery bypass grafting x 5 on June 06, 2017. He states that he has been doing well at home until last night when he was going to bed around 09:00 p.m. He states that he had mild discomfort in the center his chest but thought nothing of it. He then woke up at 11:00 p.m. with chest pain. He states that he took an aspirin and he felt slightly better but he also noticed he was significantly short of breath. He said that the pain finally resolved around 1:00 a.m., but felt that he should come to the emergency room. The pain was in the center of his chest and was a pressure in sensation. He was mildly nauseous and overall short of breath with the episode. Since the resolution of his pain, he has had no other episodes while in the emergency room. In seeing him he is currently hemodynamically stable and without chest pain. PAST MEDICAL HISTORY 1. Coronary artery disease 2. Chronic pain syndrome. 3. Hyperlipidemia. 4. Neuropathy. 5. Tobacco abuse. PAST SURGICAL HISTORY 1. Cardiac catheterization (June 05, 2017). Left main 10%, mid-LAD 80%. First diagonal with diffuse 70% disease. Left circumflex with a complex 99% long, tortuous lesion which crosses the bifurcation of the first major obtuse marginal, RCA 90% mid-disease. 2. Lumbosacral spinal surgery. 3. Coronary artery bypass grafting x 5 (June 06, 2017) with MAGAÑA to LAD, SVG to first diagonal, SVG to posterior lateral branch of the RCA, SVG to second obtuse marginal and third obtuse marginal. ALLERGIES No known drug allergies. MEDICATIONS 1. Aspirin 81 mg daily. 2. Plavix 75 mg daily. 3. Lipitor 80 mg every night. 4. Metoprolol tartrate 12.5 mg b.i.d. 5. Morphine ER 15 mg every 6 hours as needed for pain. 6. Potassium 20 mEq daily. 7. Lasix 20 mg daily. FAMILY HISTORY Denies premature coronary artery disease or sudden cardiac within the family. SOCIAL HISTORY The patient drinks alcohol rarely. He smokes two packs a day in the past and was down to half a pack a day pre-surgery. REVIEW OF SYSTEMS 14-systems were reviewed including osteopathic pertinent positives and negatives above, otherwise negative. PHYSICAL EXAMINATION VITAL SIGNS: Temperature 97.9, heart rate 52, blood pressure 125/72, respirations 17, pulse ox 100% on 2 liters. IN GENERAL: The patient appears well, in no acute distress, alert, awake and oriented x 3. HEENT: Extraocular muscles intact. Mucous membranes moist. NECK: Supple. No JVD at 45 degrees. No carotid bruits heard bilaterally. Carotid upstroke is brisk in nature. HEART: Regular in rate and rhythm. Positive first and second heart sounds with no noted murmurs, gallops or rubs. LUNGS: Clear to auscultation bilaterally. No wheezes, rales or rhonchi. ABDOMEN: Soft, nontender, nondistended. No organomegaly noted. EXTREMITIES: No clubbing, cyanosis or edema. Femoral and distal pulses intact bilaterally. NEUROLOGICALLY: No focal deficits. SKIN: Warm, dry and intact. OSTEOPATHIC EXAM: No kyphoscoliosis, lordosis or paraspinal tender points. LABORATORY FINDINGS Hemoglobin 12.1, hematocrit 36.7, platelets 295. Potassium 3.9, BUN 13, creatinine 0.6. Troponin 0.03 increasing to 0.11. ELECTROCARDIOGRAM (June 27, 2017 at 08:37) Sinus bradycardia, borderline left axis deviation. IMPRESSION 1. Chest pain concerning for coronary insufficiency. 2. Mildly elevated troponin. 3. Recent coronary artery bypass grafting x 5 (June 06, 2017). 4. History of tobacco abuse. 5. Hyperlipidemia. RECOMMENDATIONS 1. Mr. Quintana had chest pain with atypical story for angina. 2. He had a mild elevation of his troponins. Because of this we will most likely recommend cardiac catheterization tomorrow morning, probably from a femoral standpoint. 3. We will plan on doing a 2-D echo to look at his overall left ventricular function, cardiac structure and possible valvopathies. 4. He is currently without chest pain and hemodynamically stable. 5. We will continue him on his aspirin, Plavix, Lipitor and beta-bianca therapy. 6. If he does have significant elevation of his troponins, he may need to be placed on a heparin drip overnight before possible cardiac catheterization tomorrow morning. Thank you for allowing me to see Bryson Quintana. If there are any questions, please do not hesitate to call. Alex Correa DO VGP/SSB /12:21 PM /1:10 PM
--- NOTE | 2017-06-27 16:50 | PD.CAR.PN ---
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 Then underwent Urgent Off-pump Coronary Artery Bypass Grafting x 5 with Left Internal Mammary Artery (MAGAÑA) to Left Anterior Descending (LAD), reverse saphenous vein graft to Diagonal 1, reverse saphenous vein graft to the Posterolateral branch of the Right Coronary Artery (RPLB), sequential reverse saphenous vein graft to the Obtuse Marginal 2 and Obtuse Marginal 3 branches of the Circumflex artery , Right Leg Endoscopic Vein [place] on 06/06/17 Imaging Last Impressions discharged 06/10/17 New Medications: Furosemide (Lasix) 40 Mg Tab 40 MG PO DAILY edema #7 Ref 0 TAB Potassium Chloride ER (Potassium Chloride ER) 20 Meq Tab 20 MEQ PO DAILY Electrolyte Replacement #7 Ref 0 TAB Amiodarone (Amiodarone) 200 Mg Tab 200 MG PO Q12HR heart rhythm #28 TAB Aspirin (Aspirin Low Strength) 81 Mg Chew 81 MG PO DAILY Blood Clot Prevention #100 Ref 2 EA Clopidogrel (Plavix) 75 Mg Tab 75 MG PO DAILY Blood Clot Prevention #30 Ref 2 TAB Docusate Sodium (Dok) 100 Mg Cap 100 MG PO BID Constipation #60 CAP Metoprolol Tartrate (Metoprolol Tartrate) 25 Mg Tab 25 MG PO BID Blood Pressure Management #60 Ref 2 TAB Morphine ER (Morphine ER) 15 Mg Tab 15 MG PO Q6HR PRN PAIN SCALE 1 TO 10 #40 TAB Multiple Vitamins W/ Minerals (Thera M Plus) 1 Tab 1 TAB PO DAILY multi vitamin #30 Ref 2 TAB Continued Medications: Atorvastatin (Atorvastatin) 80 Mg Tab 80 MG PO HS Cholesterol Management #30 Ref 0 TAB Bupropion HCl ER 12 HR (Bupropion HCl ER 12 HR) 150 Mg Tab 150 MG PO BID #60 TAB Discontinued Medications: Aspirin (Radha Aspirin) 325 Mg Tab readmitted to Ed 2/2 chest pain woke him up last night at 11pm with SOB, mild nausea initial ECG neg then .011>0.15 pain free at this time pt has been evaluated by Dr Smyth and is scheduled to undergo cardiac cath in am to eval bypass grafts and any other culprit vessel Objective: GENERAL: SKIN: Warm and dry. sternal incision intact and well approximated HEAD: Normocephalic. EYES: No scleral icterus. No injection or drainage. NECK: Supple, trachea midline. No JVD or lymphadenopathy. CARDIOVASCULAR: Regular rate and rhythm without murmurs, gallops, or rubs. no edema RESPIRATORY: Breath sounds equal bilaterally. No accessory muscle use. GASTROINTESTINAL: Abdomen soft, non-tender, nondistended. MUSCULOSKELETAL: No cyanosis, or edema. BACK: Nontender without obvious deformity. No CVA tenderness. Vital Signs Date Time Temp Pulse Resp B/P (MAP) Pulse Ox O2 Delivery O2 Flow Rate FiO2 06/27/17 12:30 53 06/27/17 11:33 97.9 52 17 125/72 (89) 100 06/27/17 10:00 56 06/27/17 07:21 98.1 57 18 123/69 (87) 99 06/27/17 05:04 97.6 55 18 136/66 (89) 100 06/27/17 05:00 89 06/27/17 04:20 06/27/17 04:00 48 14 135/66 (89) 99 Nasal Cannula 2.00 06/27/17 03:00 50 15 149/75 (99) 100 Nasal Cannula 2.00 06/27/17 02:30 50 14 133/69 (90) 100 Nasal Cannula 2.00 06/27/17 02:00 48 14 141/70 (93) 99 Nasal Cannula 2.00 06/27/17 01:34 99 Nasal Cannula 2.00 06/27/17 01:34 52 15 128/58 (81) 99 Nasal Cannula 2.00 06/27/17 01:30 52 18 128/58 (81) 99 Nasal Cannula 2.00 06/27/17 01:25 50 99 Nasal Cannula 2.00 06/27/17 01:22 50 17 149/70 (96) 99 Nasal Cannula 2.00 06/27/17 01:07 98.0 58 20 168/82 (110) 98 Labs: Laboratory Tests Test 06/27/17 09:19 06/27/17 14:36 Total Creatine Kinase 291 U/L (39-308) 261 U/L (39-308) Troponin I 0.11 NG/ML (0.02-0.05) 0.15 NG/ML (0.02-0.05) Result Diagram: 06/27/17 0248 06/27/17 0235 Telemetry: sinus juan francisco (1) Chest pain (2) S/P CABG x 5 Plan: recurrent chest pain with elevated trop for cardiac cath in am on ASA, plavix, statin , BB Problem Qualifiers (1) Chest pain: Qualified Codes: R07.9 - Chest pain, unspecified Sunshine Altamirano Jun 27, 2017 16:50
[2017-06-27] MEDS ORDERED: ATORVASTATIN 80 MG TAB PO SCH (21:00)
[2017-06-28 00:59] VITALS: BP 141/71; PULSE 47; RESP 17; TEMP 98.2; O2SAT 96
[2017-06-28 02:16] VITALS: PULSE 52
[2017-06-28 03:35] VITALS: BP 127/61; PULSE 50; RESP 18; TEMP 98.1; O2SAT 98
[2017-06-28 06:18] LABS: AUTOMATED NEUTROPHIL # 3.6 TH/MM3 (1.8-7.7); BASOPHIL # 0.1 TH/MM3 (0-0.2); BASOPHIL % 1.2 % (0.0-2.0); EOSINOPHIL # 0.7 TH/MM3 (0-0.4); EOSINOPHIL % 8.3 % (0.0-4.0); HEMATOCRIT 38.4 % (39.0-51.0); HEMO FLAGS DIFF FINAL; LYMPH % 39.7 % (9.0-44.0); LYMPHOCYTE # 3.3 TH/MM3 (1.0-4.8); MEAN CELL VOLUME 94.4 FL (80.0-100.0); MEAN CORPUSCULAR HEMOGLOBIN 31.6 PG (27.0-34.0); MEAN CORPUSCULAR HGB CONC 33.4 % (32.0-36.0); MONO % 7.7 % (0.0-8.0); NEUT % 43.1 % (16.0-70.0); PLATELET COUNT 249 TH/MM3 (150-450); RED BLOOD COUNT 4.07 MIL/MM3 (4.50-5.90); RED CELL DISTRIBUTION WIDTH 14.3 % (11.6-17.2); WHITE BLOOD COUNT 8.4 TH/MM3 (4.0-11.0)
[2017-06-28 06:53] VITALS: PULSE 52
[2017-06-28 06:53] LABS: ALT (GPT) 47 U/L (12-78); ANION GAP 7 MEQ/L (5-15); AST (GOT) 34 U/L (15-37); BICARBONATE 27.6 MEQ/L (21.0-32.0); BLOOD UREA NITROGEN 12 MG/DL (7-18); CHLORIDE 106 MEQ/L (98-107); GLOMERULAR FILTRATION RATE 134 ML/MIN (>89); POTASSIUM 3.5 MEQ/L (3.5-5.1); SODIUM (NA) 141 MEQ/L (136-145)
[2017-06-28 07:02] LABS: ALKALINE PHOSPHATASE 149 U/L (45-117); TOTAL BILIRUBIN ADULT 0.4 MG/DL (0.2-1.0)
[2017-06-28] MEDS ORDERED: MIDAZOLAM HCL 2 MG/2 ML VIAL ONE (07:28)
[2017-06-28] MEDS ORDERED: HEPARIN-NS/PF INJ 1,000 ML ONE (07:28)
[2017-06-28] MEDS ORDERED: SODIUM CHLOR 0.9% 250 ML INJ 250 ML IV PRN (08:30)
[2017-06-28] MEDS ORDERED: MISC INFORMATION XX ONE (08:30)
[2017-06-28] MEDS ORDERED: ATROPINE SULFATE 1 MG/ML VIAL IV PRN (08:30)
[2017-06-28] MEDS ORDERED: ISOSORBIDE MONONITRATE 30 MG TAB PO ONE (08:30)
--- NOTE | 2017-06-28 08:32 | CATHPROC ---
[facility] HIS Report Study Information Study Number Admission Scheduled Start Study Start [id number] Jun 27 2017 3:37AM 06/27/2017 Jun 28 2017 7:24AM [place] [facility] Cardiac Catheterization Admit Source Facility Department Other [facility] - Dormitory Keeper Physician and Clinical Staff Initial Alex Bowens Mailing Machine Operator Judie Wallace RN Mailing Machine Operator Joao Mandujano RN Mailing Machine Operator Laurent Chandra RN Recorder Swathi Still RT(R) Recorder Taya Grvaes RCIS TECH2 Scrub Sav Bautista RCIS(BS) Procedures Performed Procedure Location (Site) Vessel Name Coronary Angiograms LCA Left Coronary Coronary Angiograms RCA Right Coronary Coronary Angiograms MAGAÑA-LAD Left Coronary Coronary Angiograms SVG-DIAG Left Coronary Coronary Angiograms SVG-OM CIRC Coronary Angiograms SVG-RCA Right Coronary L Heart Cath Equipment Time Business Coordinator Description Size Mfg Part Number Used/Scraped TRANSDUCER, TRUWAVE [id number] 07:44 SportXast * Used W/Liquid StateCK *[id number]- INTRODUCER SET, 07:32 [employer] FR 5 SC-NT-U-SST Used MICROPUNCTURE, STIFFENED *[id number] *[id number] *[id number] 07:44 [employer] INDUSTRIES PACK, CCL CUSTOM * Used *[id number] 07:44 [employer] MEDICAL SHEATH, FR5.5 PRELUDE 11CM FR 5 [id number] Used [id number] 07:44 [employer] WIRE, 3MMJ .035 180CM 180CM Used *[id number] 07:44 NAMIC MANIFOLD, 4 PORT * Used *[id number] 07:44 [employer] OMNIPAQUE, 350 MG, 150ML 150ML [id number] Used [id number] 07:44 [employer] BLANKET,WARM AIR CCL * Used *[id number] Equipment Model, Serial, Lot Number and Expiration Data Description Model Number Serial Number Lot Number Expiration Date INTRODUCER SET, [id number] 04-30-2020 MICROPUNCTURE, STIFFENED History: Current Medications Medication Dosage/Unit Route Frequency Last Date/Time Taken Statins (any) Beta Toro ASA PLAVIX LOVENOX History: Allergies Allergy Reaction No Known Allergies History: Risk Factors Family History of Hypertension Dyslipidemia Previous HI Previous Heart Failure Premature CAD Yes Yes No Yes No Prior Valve Prior PCI Prior CABG Prior CABGDate Surgery No No Yes 06/11/2017 Cerebrovascular Peripheral Artery Chronic Lung On Dialysis Diabetes Disease Disease Disease No No No No No History: Symptoms/Diagnosis Selection Items Chest pain SOB History: Stress Tests Stress or Imaging Studies Performed No History: Other Disease Selection Items CAD History: Other Current Smoker Packs a Day Years Used Pack Years Yes 2 50 100 Labs Hgb (g/dl) Hct (%) WBC (l/cumm) Platelets (thousands) 11.60-17.00 35.00-51.00 4.00-11.00 150.00-450.00 12.9 38.4 8.4 249 Glucose (mg/dl) BUN (mg/dl) Creatinine (mg/dl) BUN:Creatinine (1:x) 74.00-106.00 7.00-18.00 0.50-1.30 10.00-20.00 99 13 0.6 21.7 Na (meq/l) K (meq/l) 136.00-145.00 3.50-5.10 143 3.9 INR (PTT:PT) 0.90-1.10 0.9 Troponin I (ng/ml) CPK-MB (ng/ML) 0.02-0.05 0.50-3.60 0.15 1.3 Medication Medication Total Dose (Bolus/Oral) Medication Total Dosage/Unit 1% XYLOCAINE 20 mL FENTANYL 25 mcg VERSED 1 mg Medications (Bolus/Oral) Medication Time Given Dosage/Unit Administered By Reason FENTANYL 06/28/2017 7:39:39 AM 25 mcg Laurent Chandra RN 25 mcg FENTANYL given in lab by Laurent Chandra RN in Left Hand via Peripheral IV. Ordered by Alex Smyth. VERSED 06/28/2017 7:40:37 AM 1 mg Laurent Chandra RN 1 mg VERSED given in lab by Laurent Chandra RN in Left Hand via Peripheral IV. Ordered by Osmar Smyth 1% XYLOCAINE 06/28/2017 7:41:41 AM 20 mL Alex Smyth 20 mL 1% XYLOCAINE given in lab by Alex Smyth in Right Groin via Subcutaneous. Ordered by Alex Mckinnon. Initial Case Assessment Cardiovascular HR Rhythm NIBP Chest Pain 80 nsr 159/81 0 Edema Present Skin color Skin None Normal Warm Circulatory - Right Pulses Dorsalis Pedis Femoral 1 2 Scale (0,1,2,3,4,d) Circulatory - Left Pulses Dorsalis Pedis Femoral 1 2 Scale (0,1,2,3,4,d) Neurological State Oriented to time-place- Alert Moves all extremities person Respiration - General Respiration Rate SpO2 (%) (B/min) 17 99 Final Case Assessment Cardiovascular HR Rhythm NIBP Chest Pain 80 nsr 159/81 0 Edema Present Skin color Skin None Normal Warm Circulatory - Right Pulses Dorsalis Pedis Femoral 1 2 Scale (0,1,2,3,4,d) Circulatory - Left Pulses Dorsalis Pedis Femoral 1 2 Scale (0,1,2,3,4,d) Neurological State Oriented to time-place- Alert Moves all extremities person Respiration - General Respiration Rate SpO2 (%) (B/min) 17 99 Chronological Log Time Study Chronological Log 7:21:20 Patient arrived via Bed. 7:24:24 Patient Name, D.O.B, / Armband Verified By R.N. 7:24:25 Consent signed by the physician and the patient and verified by the Dormitory Keeper staff. 7:24:27 Pre-op and post- op instructions given; patient acknowledges understanding of instructions. 7:24:31 Presedation assessment performed by Dormitory Keeper RN. 7:24:33 Allens test performed on the right radial and ulnar artery. 7:24:36 Patient has been NPO for Less than 6Hrs. 7:24:40 Skin Breakdown- none per pt 7:24:41 Patient Warmer Placed on the Table. 7:24:43 Lin Prominences Protected 7:24:53 A # 20 IV was noted in the Hand (left). Grade = 0 7:25:06 History and physical on the chart or being dictated. Assessment: Initial Case, HR=80 BPM, Rhythm=nsr, BJNG=900/81 mmhg, Chest Pain=0, Edema=None, Co [place]=Normal, Skin = Warm Right Pulses: Eric Ped=1, Femoral=2 7:25:07 Left Pulses: Eric Ped=1, Femoral=2 Neurological: State=Alert, Ox3, ALONZO Respiration: Resp=17 B/min, SpO2=99 % Vitals capture started with the following parameters, Patient=Adult, Interval=5 min, Initial Pr onvgjf=095 mmHg, 7:28:09 Deflation Rate=5 mmHg, Cuff placed on Right Arm 7:29:27 HR=69 bpm, PFEJ=293/87 mmhg, NqC9=671.0 %, Resp=14 B/min, Pain=0, Ivette=10, Pete=2 7:31:53 MD arrived. 7:31:58 Bilateral groins prepped with 2% chlorhexidine, and draped after a 3 min. waiting time. 7:33:51 HR=58 bpm, ILXB=797/81 mmhg, SpO2=99.0 %, Resp=17 B/min, Pain=0, Ivette=10, Pete=2 7:35:50 Reference ECG taken 7:37:12 Pressure channel 1 zeroed. 7:38:48 HR=65 bpm, RDOV=016/90 mmhg, SpO2=97.0 %, Resp=14 B/min, Pain=0, Ivette=10, Pete=2 Time Out. Correct patient, correct procedure,correct physician, power injector not loaded with c ontrast with surgical 7:39:37 team present. Time Out Concurred by MD, individual staff in procedure 7:39:39 25 mcg FENTANYL given in lab by Laurent Chandra RN in Left Hand via Peripheral IV. Ordered by Alex Payan. 7:40:37 1 mg VERSED given in lab by Laurent Chandra RN in Left Hand via Peripheral IV. Ordered by Alex Bateman. 7:40:44 Case Start 7:41:41 20 mL 1% XYLOCAINE given in lab by Alex Smyth in Right Groin via Subcutaneous. Ordere d by Alex Smyth. 7:41:55 Access site was Right Femoral Artery using micropuncture kit 7:42:29 A SHEATH, FR5.5 PRELUDE 11CM FR 5 was advanced into the Fem Art (right) using the Percutaneo us technique. 7:43:40 An injection in the Fem Art (right) was made through the SHEATH, FR5.5 PRELUDE 11CM FR 5. 7:43:47 HR=82 bpm, YIEZ=535/91 mmhg, SpO2=96.0 %, Resp=21 B/min, Pain=0, Ivette=10, Pete=2 A JL 4.0 INFINITI CATHETER FR 5 was advanced over a wire. OMNIPAQUE, 350 MG, 150ML 150ML was use d for 7:44:24 injections. 7:45:41 The LCA was injected and visualized at various angles. OMNIPAQUE, 350 MG, 150ML 150ML used. After removing the current catheter a JR 4.0 INFINITI CATHETER FR 5 was advanced over a WIRE, 3M MJ .035 180CM 7:47:16 180CM. 7:49:21 HR=73 bpm, VZAM=244/84 mmhg, SpO2=95.0 %, Resp=17 B/min, Pain=0, Ivette=10, Pete=2 7:49:25 The RCA was injected and visualized at various angles. OMNIPAQUE, 350 MG, 150ML 150ML used. 7:51:59 The SVG-RCA was injected and visualized at various angles. OMNIPAQUE, 350 MG, 150ML 150ML us ed. 7:52:02 The SVG-OM was injected and visualized at various angles. OMNIPAQUE, 350 MG, 150ML 150ML use d. 7:53:49 HR=66 bpm, DXVO=419/89 mmhg, SpO2=96.0 %, Resp=15 B/min, Pain=0, Ivette=10, Pete=2 7:54:49 The SVG-DIAG was injected and visualized at various angles. OMNIPAQUE, 350 MG, 150ML 150ML u sed. Recorded Pressure: LV, HR=63, Condition=Condition 1 7:56:25 (Left Ventricle) LV 143/2/11 Recorded Pressure: LV, Ao, HR=60, Condition=Condition 1 7:56:41 (Left Ventricle) LV 142/-3/14, (Aorta) Ao 141/63/92 7:58:53 HR=59 bpm, WEMC=174/79 mmhg, SpO2=97.0 %, Resp=20 B/min, Pain=0, Ivette=10, Pete=2 7:59:23 The MAGAÑA-LAD was injected and visualized at various angles. OMNIPAQUE, 350 MG, 150ML 150ML u sed. 8:00:02 Catheter was removed 8:01:55 Case End 8:02:09 Sterile dressing applied to site 8:02:09 No case complications noted. 8:02:10 Cine recording checked. 8:02:13 Bedside Report will be given. 8:02:15 Contrast Scanned 8:02:21 A Left Heart Cath was performed. Assessment: Final Case, HR=80 BPM, Rhythm=nsr, ZLYD=024/81 mmhg, Chest Pain=0, Edema=None, Col or=Normal, Skin = Warm Right Pulses: Eric Ped=1, Femoral=2 8:02:30 Left Pulses: Eric Ped=1, Femoral=2 Neurological: State=Alert, Ox3, ALONZO Respiration: Resp=17 B/min, SpO2=99 % 8:05:00 Patient moved to stretcher End Study - Contrast Media Used In Study Contrast Total Opened (mL) Total Used (mL) Total Wasted (mL) Omnipaque 70 70 0 End Study - Maximum Contrast Load Max Contrast Load (mL) 708.3 End Study - Radiation Exposure Fluoro Time (minutes) 7.1 End Study - Patient Disposition Complications Transferred To Interventional Outcome No Telemetry Bed No attempt made
[2017-06-28] MEDS ORDERED: ISOS30TA3 PO ×2 (11:19→14:04)
--- NOTE | 2017-06-28 11:20 | HHI.PR ---
Subjective Remarks Patient is seen status post heart catheterization. Eyes discussed the case with cardiology, Dr. Smyth. Grafts were patent. There is a vessel that was small but nothing requiring stent placement. Medical management advised. Objective Vitals Vital Signs Date Time Temp Pulse Resp B/P (MAP) Pulse Ox O2 Delivery O2 Flow Rate FiO2 06/28/17 08:10 98 Room Air 06/28/17 06:53 52 06/28/17 03:35 98.1 50 18 127/61 (83) 98 06/28/17 02:16 52 06/28/17 00:59 98.2 47 17 141/71 (94) 96 06/27/17 20:17 98.5 56 18 130/67 (88) 97 06/27/17 18:21 49 06/27/17 16:45 98.3 52 16 100/52 (68) 98 06/27/17 12:30 53 06/27/17 11:33 97.9 52 17 125/72 (89) 100 Result Diagram: 06/28/17 0547 06/28/17 0547 Objective Remarks GENERAL: This is a well-nourished, well-developed patient, in no apparent distress. CARDIOVASCULAR: Normal rate and regular rhythm without murmurs, gallops, or rubs. RESPIRATORY: Good respiratory efforts. Breath sounds equal and clear to auscultation bilaterally. GASTROINTESTINAL: Abdomen soft, non-tender, non-distended. Normal active bowel sounds MUSCULOSKELETAL: Extremities without cyanosis, or edema. NEURO: Alert & Oriented x4 to person, place, time, situation. Moves all ext x4 PSYCH: Appropriate mood and affect. Procedures Heart catheterization A/P Assessment and Plan 66-year-old male with a past medical history of CAD and recent CABG who presented for chest pain. The patient's second set of troponins were slightly elevated. He is chest pain completely resolved. He was evaluated by CT surgery and cardiology. He underwent heart catheterization which revealed the grafts were patent. There was a vessel that is small but did not require any stent placement. Medical management advised. Imdur was added. Patient is discharged home to continue medical management. He is to continue on aspirin, Plavix, beta bianca, statin. Imdur was added. Follow-up outpatient with cardiology. History of tobacco abuse: Encouraged patient to continue cessation. States he quit 23 days ago. Discharge Planning Discharged home in good condition Diet: Heart healthy Activity: Regular as tolerated Meds: Per med rec Follow-up: With PCP Alexandre Childers MD Jun 28, 2017 11:20
--- NOTE | 2017-06-28 11:20 | HHI.DCPOC ---
Discharge Care Plan Diagnosis: (1) Chest pain (2) Tobacco abuse (3) CAD (coronary artery disease) (4) Hyperlipemia Goals to Promote Your Health * To prevent worsening of your condition and complications * To maintain your health at the optimal level Directions to Meet Your Goals Take your medications as prescribed Follow your dietary instruction Follow activity as directed Keep your appointments as scheduled Take your immunizations and boosters as scheduled If your symptoms worsen call your PCP, if no PCP go to Urgent Care Center or Emergency Room Smoking is Dangerous to Your Health. Avoid second hand smoke Call the 24-hour hour crisis hotline for domestic abuse at Alexandre Childers MD Jun 28, 2017 11:19
--- NOTE | 2017-06-28 11:44 | EKG ---
Date Performed: 06/27/2017 Time Performed: 14:30:09 PTAGE: 66 years EKG: SINUS BRADYCARDIA Consider INFERIOR MYOCARDIAL INFARCTION - age indeterminate ABNORMAL ECG PREVIOUS TRACING : 06/27/2017 08.37 DOCTOR: Bernard Soto Interpretating Date/Time 06/28/2017 11:41:19
--- NOTE | 2017-06-28 19:16 | PD.CARD.PN ---
Subjective Subjective Remarks Patient seen post-cath Doing well, no complaints Objective Medications Current Medications Medications (Trade) Dose Ordered Sig/Radha Route Start Time Stop Time Status Last Admin (NS Flush) 2 ml UNSCH PRN IV FLUSH 06/27/17 03:45 (NS Flush) 2 ml BID IV FLUSH 06/27/17 09:00 06/27/17 20:24 (Narcan Inj) 0.4 mg UNSCH PRN IV 06/27/17 03:45 (Aspirin Chew) 81 mg DAILY PO 06/27/17 09:30 06/27/17 10:16 (Lipitor) 80 mg HS PO 06/27/17 21:00 06/27/17 20:24 (Plavix) 75 mg DAILY PO 06/27/17 09:30 06/27/17 10:16 (Lopressor) 12.5 mg BID PO 06/27/17 09:30 06/27/17 20:25 (Pill Splitter) 1 ea UNSCH PRN OTHER 06/27/17 09:30 (Atropine Inj) 0.5 mg UNSCH PRN IV 06/28/17 08:30 Sodium Chloride 250 ml @ 500 mls/hr ONCE PRN IV 06/28/17 08:30 06/29/17 08:29 (Imdur) 30 mg DAILY@07 PO 06/29/17 07:00 Vital Signs / I&O Vital Signs Date Time Temp Pulse Resp B/P (MAP) Pulse Ox O2 Delivery O2 Flow Rate FiO2 06/28/17 08:10 98 Room Air 06/28/17 06:53 52 06/28/17 03:35 98.1 50 18 127/61 (83) 98 06/28/17 02:16 52 06/28/17 00:59 98.2 47 17 141/71 (94) 96 06/27/17 20:17 98.5 56 18 130/67 (88) 97 Physical Exam GENERAL: NAD, AAOx3 SKIN: Warm and dry. HEAD: Atraumatic. Normocephalic. EYES: Pupils equal and round. No scleral icterus. No injection or drainage. ENT: No nasal bleeding or discharge. Mucous membranes pink and moist. NECK: Trachea midline. No JVD. CARDIOVASCULAR: Regular rate and rhythm. RESPIRATORY: No accessory muscle use. Clear to auscultation. Breath sounds equal bilaterally. GASTROINTESTINAL: Abdomen soft, non-tender, nondistended. Hepatic and splenic margins not palpable. MUSCULOSKELETAL: Extremities without clubbing, cyanosis, or edema. No obvious deformities. Right femoral no hematoma/bruit, pulses intact distally NEUROLOGICAL: Awake and alert. No obvious cranial nerve deficits. Motor grossly within normal limits. Five out of 5 muscle strength in the arms and legs. Normal speech. PSYCHIATRIC: Appropriate mood and affect; insight and judgment normal. Laboratory Laboratory Tests Test 06/28/17 05:47 White Blood Count 8.4 TH/MM3 Red Blood Count 4.07 MIL/MM3 Hemoglobin 12.9 GM/DL Hematocrit 38.4 % Mean Corpuscular Volume 94.4 FL Mean Corpuscular Hemoglobin 31.6 PG Mean Corpuscular Hemoglobin Concent 33.4 % Red Cell Distribution Width 14.3 % Platelet Count 249 TH/MM3 Mean Platelet Volume 7.9 FL Neutrophils (%) (Auto) 43.1 % Lymphocytes (%) (Auto) 39.7 % Monocytes (%) (Auto) 7.7 % Eosinophils (%) (Auto) 8.3 % Basophils (%) (Auto) 1.2 % Neutrophils # (Auto) 3.6 TH/MM3 Lymphocytes # (Auto) 3.3 TH/MM3 Monocytes # (Auto) 0.6 TH/MM3 Eosinophils # (Auto) 0.7 TH/MM3 Basophils # (Auto) 0.1 TH/MM3 CBC Comment DIFF FINAL Differential Comment Blood Urea Nitrogen 12 MG/DL Creatinine 0.60 MG/DL Random Glucose 94 MG/DL Total Protein 6.4 GM/DL Albumin 2.7 GM/DL Calcium Level 8.5 MG/DL Alkaline Phosphatase 149 U/L Aspartate Amino Transf (AST/SGOT) 34 U/L Alanine Aminotransferase (ALT/SGPT) 47 U/L Total Bilirubin 0.4 MG/DL Sodium Level 141 MEQ/L Potassium Level 3.5 MEQ/L Chloride Level 106 MEQ/L Carbon Dioxide Level 27.6 MEQ/L Anion Gap 7 MEQ/L Estimat Glomerular Filtration Rate 134 ML/MIN Troponin I 0.11 NG/ML Assessment and Plan Problem List: (1) Chest pain ICD Codes: R07.9 - Chest pain, unspecified Status: Acute (2) S/P CABG x 5 ICD Codes: Z95.1 - Presence of aortocoronary bypass graft Status: Acute (3) Elevated troponin ICD Codes: R74.8 - Abnormal levels of other serum enzymes (4) Hyperlipemia ICD Codes: E78.5 - Hyperlipidemia, unspecified Status: Acute Assessment and Plan 1) Presented with concern for ischemia and minimal elevation of troponin 2) S/P cardiac catheterization today Grafts all patent SVG to Diag only fills the retrograde portion of the diagonal, but antegrade no flow, overall vessel covers very little myocardium and is only 1mm in size, no intervention possible Place on Imdur 30mg Instructed not to take Viagra/Cialis within 24 hours 3) Plan discharge today 4) Follow up with Dr. Holt Problem Qualifiers (1) Chest pain: Qualified Codes: R07.9 - Chest pain, unspecified Alex Smyth DO Jun 28, 2017 19:16
--- NOTE | 2017-06-28 21:39 | MA ---
cc: ALEX CORREA DO DATE OF PROCEDURE June 28, 2017 PROCEDURE Left heart catheterization, coronary angiogram, bypass angiography, moderate sedation 20 minutes. PREPROCEDURE DIAGNOSIS NSTEMI, chest pain concerning for coronary insufficiency, recent coronary artery bypass grafting. POSTPROCEDURE DIAGNOSIS NSTEMI, CABG (5/5 grafts patent). MEDICATIONS 1. Fentanyl 25 micrograms. 2. Versed 0.5 milligrams. CONTRAST 70 cc. FLUOROSCOPY 7.1 minutes. MODERATE SEDATION 20 minutes. ESTIMATED BLOOD LOSS 10 cc. PROCEDURAL SUMMARY Bryson Quintana is a pleasant 66-year-old male who presented to [facility] on June 27, 2017 due to chest pain and was found to have a minimally elevated troponin. He underwent recent coronary artery bypass grafting with five grafts. Because of the chest pain and elevated troponin it was felt that it was necessary to undergo cardiac catheterization to define if any of his bypasses had occluded. Risks, benefits and alternatives were explained to him and he consented as such. He was brought to lab and prepped in the usual sterile fashion. Right femoral artery was accessed using a modified Seldinger technique and placement of a 5-Sinhala sheath. This was easily aspirated and flushed. The JL-4 was advanced over a J-wire to the ascending aorta and used for selective angiography of the left coronary system. The JL-4 was exchanged for a JR-4 which was used for selective angiography of the right coronary system, bypass grafts and MAGAÑA. JR-4 was advanced across the aortic valve into the left ventricle for measurement of left ventricular pressure. This was pulled back across the aortic valve showing no significant gradient of aortic stenosis. JR-4 was removed over a J-wire. Sheath was sutured in place with a plan to remove and pressure held for hemostasis in the DOC unit. The patient left the labeler cardiovascularly stable. FINDINGS Left main: Normal size vessel with 10% disease. It bifurcates into an LAD and circumflex. LAD: Mild disease throughout the proximal portion. At the takeoff of the first diagonal there is a 70% lesion in the LAD. There is competitive flow noted in the first diagonal as well as in the LAD. Left circumflex: Small vessel overall. In the proximal to midportion there is a long 99% lesion which is complex and off of this the second obtuse marginal comes off. Distal to this it appears that the vessel is occluded. RCA: Overall small vessel with a 95% lesion in the midportion. Distally there is competitive flow seen in the PDA. MAGAÑA to LAD: Widely patent with no disease seen at the anastomotic site. The LAD is overall small and fills distally and retrogradely. SVG to diagonal: Widely patent graft with mild slow flow but no disease noted. Distally it attaches to a small diagonal which fills retrogradely. Antegrade flow appears to be occluded and overall the diagonal is about 1 mm in size. SVG jump graft to OM2 and OM3 widely patent vessel with no anastomotic disease noted. OM2 fills both antegrade and retrograde. OM3 fills both antegrade and retrograde and supplies a fourth obtuse marginal. SVG to RCA: Widely patent with no significant disease. It fills the PDA and retrogradely into the RCA. LVEDP 14. IMPRESSION 1. STEMI with mild elevation of troponin. 2. Coronary artery disease as above with history of recent CABG (5/5 grafts patent). 3. SVG to diag has slow flow and this is most likely due to the diagonal being a small vessel but also antegrade flow distal to the anastomotic site appears occluded. RECOMMENDATIONS 1. Mr. Quintana appears to have all of his grafts patent but there is concern as his SVG to the diagonal attaches to an extremely small vessel at 1 mm and there appears to be no flow antegrade from the anastomotic site. There is retrograde flow up the diagonal. 2. At this time there is no intervenable lesions. 3. We will continue with medical management. I have added Imdur 30 milligrams daily to his medical regimen. 4. Will plan to discharge him today. 5. He will follow up with Dr. Holt in 2-4 weeks. Thank you for allowing me to see Bryson Quintana. If there are any questions please do not hesitate to call. Alex Correa DO VGP/EO /8:46 PM /9:21 PM DAYSI
[2017-06-29] MEDS ORDERED: ISOSORBIDE MONONITRATE 30 MG TAB PO SCH (07:00)
== END 2017-06-28 16:00 | disposition home or self-care (01) ==
LOC: NEPE 00:59 → NEDA 03:37 → NEPFCDU 04:36 → HCIS 06-28 08:34
PROVIDERS: ADMIT Family Medicine; ATTEND Family Medicine
DX: R07.9 Chest pain, unspecified (principal); I21.3 ST elevation (STEMI) myocardial infarction of unspecified site; I25.110 Atherosclerotic heart disease of native coronary artery with unstable angina pectoris; R11.0 Nausea; E78.5 Hyperlipidemia, unspecified; E78.00 Pure hypercholesterolemia, unspecified; R00.1 Bradycardia, unspecified; R94.31 Abnormal electrocardiogram [ECG] [EKG]; G62.9 Polyneuropathy, unspecified; G89.4 Chronic pain syndrome; M19.90 Unspecified osteoarthritis, unspecified site; F17.200 Nicotine dependence, unspecified, uncomplicated; Z95.1 Presence of aortocoronary bypass graft; Z79.899 Other long term (current) drug therapy; Z79.02 Long term (current) use of antithrombotics/antiplatelets; Z79.82 Long term (current) use of aspirin
CPT/HCPCS: 71010; 80053; 82550; 82552; 83690; 83735; 84484; 85025; 85610; 85730; 93005; 93459; 99285; C1769; C1893; G0378; J1644; J2250; J3010; Q9967